=== PATIENT | female | born 1975 | race American Indian/Alaskan Native ===

== ENCOUNTER 2019-04-15 20:41 | Emergency (ER) | payer SELFPAY ==
--- NOTE | 2019-04-15 20:48 | Emergency Department Report ---
Blank Doc - Documentation Documentation: This is a 43-year-old female that presents with abdominal pain with n/v. This initial assessment/diagnostic orders/clinical plan/treatment(s) is/are subject to change based on patient's health status, clinical progression and re- assessment by fellow clinical providers in the ED. Further treatment and workup at subsequent clinical providers discretion. Patient/guardians urged not to elope from the ED as their condition may be serious if not clinically assessed and managed. Initial orders include: 1- Patient sent to [facility] for further evaluation and treatment 2- labs 3- UA
[2019-04-15 20:52] VITALS: BP 157/99
[2019-04-15 21:33] LABS: Alanine Aminotransferase 14 units/L (7-56); Albumin 4.1 g/dL (3.9-5); BUN/Creatinine Ratio 14; Blood Urea Nitrogen 11 mg/dL (7-17); Calcium 8.7 mg/dL (8.4-10.2); Hemolysis Index 0
[2019-04-15 21:40] LABS: Bacteria,Urine 1+ /HPF (Negative); Bilirubin,Urine NEG (Negative); Blood,Urine NEG (Negative); Color,Urine Yellow (Yellow); Mucus,Urine 3+ /HPF
[2019-04-15] MEDS ORDERED: MORPHINE IV ONE (21:43)
[2019-04-15] MEDS ORDERED: ZOFRAN IV ONE (21:43)
[2019-04-15] MEDS ORDERED: NACL 0.9% 1000 ML 1,000 ML IV ONE (21:44)
[2019-04-15 21:46] LABS: Basophils # (Auto) 0.1 K/mm3 (0.0-0.1); Basophils % (Auto) 0.7 % (0.0-1.8); Eosinophils # (Auto) 0.1 K/mm3 (0.0-0.4); Eosinophils % (Auto) 1.4 % (0.0-4.3); Hematocrit 26.5 % (30.3-42.9); Hemoglobin 8.1 gm/dl (10.1-14.3); Lymphocytes # (Auto) 2.3 K/mm3 (1.2-5.4); Lymphocytes % (Auto) 24.6 % (13.4-35.0); Mean Corpuscular HGB Conc 31 % (30-34); Monocytes # (Auto) 0.5 K/mm3 (0.0-0.8); Monocytes % (Auto) 5.7 % (0.0-7.3); Platelet Count 336 K/mm3 (140-440); Red Blood Count 4.32 M/mm3 (3.65-5.03); Red Cell Distribution Width 19.9 % (13.2-15.2)
[2019-04-15 21:49] LABS: Mean Corpuscular Volume 62 fl (79-97)
--- NOTE | 2019-04-15 23:59 | Cat Scan Report ---
CT of the abdomen and pelvis with contrast The patient received 100 cc of Omnipaque 300 for intravenous contrast INDICATION: Lower quadrant pain COMPARISON: None FINDINGS: Lung bases are clear. The liver, spleen, pancreas, adrenal glands and kidneys show no abnor malities. No definite gallbladder or biliary tree abnormality. No fluid or adenopathy the in the uppe r abdomen. CT of the pelvis shows large amount of motion artifact. The appendix is seen and is normal. There are no uterine masses seen. There may be a small 2 cm right ovarian cyst without free fluid. No divertic ulosis or diverticulitis. No hernia or bowel obstruction. No significant skeletal lesion. IMPRESSION: Negative study. No appendicitis or other abnormality. Automated exposure control was utilized to diminish radiation dose. Signer Name: Jah Chadwick MD Signed: 04/15/2019 11:55 PM Workstation Name: [id number]
--- NOTE | 2019-04-16 00:16 | Emergency Department Report ---
ED Abdominal Pain HPI - General Chief Complaint: Abdominal Pain Stated Complaint: ABD PAIN, VOMITTING, NAUSEA, SWEATING Time Seen by Provider: 04/15/19 20:48 Source: patient Mode of arrival: Ambulatory Limitations: No Limitations - History of Present Illness Initial Comments: Patient is a 43-year-old -[place] female with a history of chronic iron deficiency anemia presents to the ED with complaint of acute onset persistent right lower quadrant abdominal pain with nausea and vomiting and diarrhea for the last 24 hours, worse in the last 12 hours. Patient states that the symptoms have been intermittent and that the pain has been persistent. Patient denies fever, chills, dysuria, urinary frequency and urgency, vaginal bleeding, vaginal discharge, low back pain, cough, chest pain, shortness of breath, dizziness, sore throat, headache, or weakness. MD Complaint: abdominal pain, other (nausea and vomiting) -: Sudden, hour(s) (12) Location: RLQ Radiation: RLQ, suprapubic Migration to: no migration Severity: severe Severity scale (0 -10): 7 Quality: cramping, aching, sharp Consistency: constant Improves With: nothing Worsens With: nothing Associated Symptoms: denies other symptoms, nausea, vomiting, diarrhea. denies: fever, chills, constipation, dysuria, hematemesis, hematochezia, melena, hematuria, anorexia, syncope - Related Data LMP (females 10-50): last week Previous Rx's Medication Instructions Recorded Last Taken Type Dicyclomine [Bentyl] 20 mg PO Q6H PRN #24 tablet 04/16/19 Unknown Rx Ferrous Sulfate [Ferrous Sulfate 324 mg PO DAILY #30 tablet. 04/16/19 Unknown Rx 324 MG] Ketorolac [Toradol] 10 mg PO Q8H PRN #20 tablet 04/16/19 Unknown Rx Ondansetron [Zofran Odt] 4 mg PO Q6HR PRN #20 tab.rapdis 04/16/19 Unknown Rx Sennosides/Docusate Sodium 1 each PO QHS #30 tablet 04/16/19 Unknown Rx [Docusate Sodium-Senna Tablet] raNITIdine HCl [Zantac] 150 mg PO Q12H #30 tablet 04/16/19 Unknown Rx Allergies Allergy/AdvReac Type Severity Reaction Status Date / Time No Known Allergies Allergy Unverified 04/15/19 20:52 ED Review of Systems ROS: Stated complaint: ABD PAIN, VOMITTING, NAUSEA, SWEATING Other details as noted in HPI Constitutional: denies: chills, fever Eyes: denies: eye pain, eye discharge, vision change ENT: denies: ear pain, throat pain Respiratory: denies: cough, shortness of breath, wheezing Cardiovascular: denies: chest pain, palpitations Endocrine: no symptoms reported Gastrointestinal: abdominal pain, nausea, vomiting, diarrhea. denies: constipa tion, hematemesis, hematochezia Genitourinary: denies: urgency, dysuria, discharge Musculoskeletal: denies: back pain, joint swelling, arthralgia Skin: denies: rash, lesions Neurological: denies: headache, weakness, paresthesias Psychiatric: denies: anxiety, depression Hematological/Lymphatic: denies: easy bleeding, easy bruising ED Past Medical Hx - Past Medical History Previous Medical History?: No - Surgical History Past Surgical History?: Yes Additional Surgical History: TUBAL LIGATION - Social History Smoking Status: Current Every Day Smoker Substance Use Type: Alcohol, Marijuana - Medications Home Medications: Home Medications Medication Instructions Recorded Confirmed Last Taken Type Dicyclomine [Bentyl] 20 mg PO Q6H PRN #24 tablet 04/16/19 Unknown Rx Ferrous Sulfate [Ferrous Sulfate 324 mg PO DAILY #30 tablet.dr 04/16/19 Unknown Rx 324 MG] Ketorolac [Toradol] 10 mg PO Q8H PRN #20 tablet 04/16/19 Unknown Rx Ondansetron [Zofran Odt] 4 mg PO Q6HR PRN #20 tab.rapdis 04/16/19 Unknown Rx Sennosides/Docusate Sodium 1 each PO QHS #30 tablet 04/16/19 Unknown Rx [Docusate Sodium-Senna Tablet] raNITIdine HCl [Zantac] 150 mg PO Q12H #30 tablet 04/16/19 Unknown Rx ED Physical Exam - General Limitations: No Limitations General appearance: alert, in no apparent distress - Head Head exam: Present: atraumatic, normocephalic, normal inspection - Eye Eye exam: Present: normal appearance, PERRL, EOMI. Absent: scleral icterus, nystagmus, periorbital swelling, periorbital tenderness, other Pupils: Present: normal accommodation - ENT ENT exam: Present: normal exam, normal orophraynx, mucous membranes moist, TM's normal bilaterally, normal external ear exam - Neck Neck exam: Present: normal inspection, full ROM. Absent: tenderness, lymphadenopathy - Respiratory Respiratory exam: Present: normal lung sounds bilaterally. Absent: respiratory distress, wheezes, rales, chest wall tenderness, accessory muscle use, decreased breath sounds, prolonged expiratory - Cardiovascular Cardiovascular Exam: Present: regular rate, normal rhythm, normal heart sounds. Absent: systolic murmur, diastolic murmur, rubs, gallop - GI/Abdominal GI/Abdominal exam: Present: soft, tenderness (RLQ tenderness), normal bowel sounds. Absent: guarding, rebound, hyperactive bowel sounds, hypoactive bowel sounds, organomegaly, mass, bruit, pulsatile mass, other - Rectal Rectal exam: Present: deferred - Extremities Exam Extremities exam: Present: normal inspection, full ROM, normal capillary refill - Back Exam Back exam: Present: normal inspection, full ROM. Absent: tenderness, CVA tenderness (R), CVA tenderness (L), muscle spasm, paraspinal tenderness, vertebral tenderness - Neurological Exam Neurological exam: Present: alert, oriented X3, CN II-XII intact, normal gait, reflexes normal - Psychiatric Psychiatric exam: Present: normal affect, normal mood - Skin Skin exam: Present: warm, dry, intact, normal color. Absent: rash ED Course Vital Signs 04/15/19 20:48 Temperature 98.4 F Pulse Rate 104 H Respiratory 18 Rate Blood Pressure 157/99 O2 Sat by Pulse 100 Oximetry - Reevaluation(s) Reevaluation #1: 04/16/19 00:14 This is a 43-year-old female with a history of chronic iron deficiency anemia who presented to the ED with acute onset right lower quadrant pain with nausea and vomiting and diarrhea. In the ED patient is alert and oriented 3 and is not in distress. Patient was treated in the ED for pain or nausea and vomiting. Lab test results were reviewed and are significant for H&H of 8.1 and 26.5 and MCV of 62. Patient stated that she does not take any iron pills despite the fact that she is anemic. Abdomen pelvis CT scan with contrast shows Lung bases which are clear. The liver, spleen, pancreas, adrenal glands and kidneys show no abnormalities. No definite gallbladder or biliary tree abnormality. No fluid or adenopathy the in the upper abdomen. CT of the pelvis shows large amount of motion artifact. The appendix is seen and is normal. There are no uterine masses seen. There may be a small 2 cm right ovarian cyst without free fluid. No diverticulosis or diverticulitis. No hernia or bowel obstruction. No significant skeletal lesion. On reevaluation, patient's pain is well-controlled with medi cations, as well as nausea and vomiting. Patient was discharged home on medications for pain and antiemetics, and also given a prescription for ferrous sulfate for her chronic anemia. Patient was advised to follow-up with her primary care physician in 5-7 days for reevaluation or return to the ED immediately if symptoms get worse. ED Medical Decision Making - Lab Data Result diagrams: 04/15/19 21:06 04/15/19 21:06 - Radiology Data Radiology results: report reviewed, image reviewed Findings [facility] [address] [place] [address] Cat Scan Report Signed Patient: GEOFFREY SOTO MR#: [id number] : 1975 Acct:[id number] Age/Sex: 43 / F ADM Date: 04/15/19 Loc: ED Attending Dr: Ordering Physician: SYLVESTER MIXON Date of Service: 04/15/19 Procedure(s): CT abdomen pelvis w con Accession Number(s): [id number] cc: SYLVESTER MIXON CT of the abdomen and pelvis with contrast The patient received 100 cc of Omnipaque 300 for intravenous contrast INDICATION: Lower quadrant pain COMPARISON: None FINDINGS: Lung bases are clear. The liver, spleen, pancreas, adrenal glands and kidneys show no abnormalities. No definite gallbladder or biliary tree abnormality. No fluid or adenopathy the in the upper abdomen. CT of the pelvis shows large amount of motion artifact. The appendix is seen and is normal. There are no uterine masses seen. There may be a small 2 cm right ovarian cyst without free fluid. No diverticulosis or diverticulitis. No hernia or bowel obstruction. No significant skeletal lesion. IMPRESSION: Negative study. No appendicitis or other abnormality. Automated exposure control was utilized to diminish radiation dose. - Medical Decision Making This is a 43-year-old female with a history of chronic iron deficiency anemia who presented to the ED with acute onset right lower quadrant pain with nausea and vomiting and diarrhea. In the ED patient is alert and oriented 3 and is not in distress. Patient was treated in the ED for pain or nausea and vomiting. Lab test results were reviewed and are significant for H&H of 8.1 and 26.5 and MCV of 62. Patient stated that she does not take any iron pills despite the fact that she is anemic. Abdomen pelvis CT scan with contrast shows Lung bases which are clear. The liver, spleen, pancreas, adrenal glands and kidneys show no abnormalities. No definite gallbladder or biliary tree abnormality. No fluid or adenopathy the in the upper abdomen. CT of the pelvis shows large amount of motion artifact. The appendix is seen and is normal. There are no uterine masses seen. There may be a small 2 cm right ovarian cyst without free fluid. No diverticulosis or diverticulitis. No hernia or bowel obstruction. No significant skeletal lesion. On reevaluation, patient's pain is well-controlled with medications, as well as nausea and vomiting. Patient was discharged home on medications for pain and antiemetics, and also given a prescription for ferrous sulfate for her chronic anemia. Patient was advised to follow-up with her primary care physician in 5-7 days for reevaluation or return to the ED im mediately if symptoms get worse. - Differential Diagnosis Abdominal pain; vomiting, Gastroenteritis; Appendicitis, ovarian cyst, UTI Critical care attestation.: If time is entered above; I have spent that time in minutes in the direct care of this critically ill patient, excluding procedure time. ED Disposition Clinical Impression: Abdominal pain, right lower quadrant, Nausea and vomiting in adult, Chronic iron deficiency anemia, Gastroenteritis, Right ovarian cyst Disposition: - TO HOME OR SELFCARE Is pt being admited?: No Does the pt Need Aspirin: No Condition: Stable Instructions: Abdominal Pain (ED), Ovarian Cyst (ED), Iron Deficiency Anemia (ED), Gastroenteritis (ED), Acute Nausea and Vomiting (ED) Additional Instructions: Maintain a clear liquid diet in the next 12-24 hours. Taken medications with food, drink plenty of fluids and follow-up with your primary care physician in 5-7 days for reevaluation. Return to the ED immediately if symptoms get worse. Prescriptions: Sennosides/Docusate Sodium [Docusate Sodium-Senna Tablet] 1 each PO QHS #30 tablet Dicyclomine [Bentyl] 20 mg PO Q6H PRN #24 tablet PRN Reason: Pain , Severe (7-10) Ferrous Sulfate [Ferrous Sulfate 324 MG] 324 mg PO DAILY #30 tablet. Ketorolac [Toradol] 10 mg PO Q8H PRN #20 tablet PRN Reason: Pain raNITIdine HCl [Zantac] 150 mg PO Q12H #30 tablet Ondansetron [Zofran Odt] 4 mg PO Q6HR PRN #20 tab.rapdis PRN Reason: Nausea Referrals: [facility] [Outside] - 3-5 Days Time of Disposition: 00:21 Print Language: PORTUGUESE
== END 2019-04-16 00:40 | disposition home or self-care (01) ==
LOC: ED 20:41
DX: K52.9 Noninfective gastroenteritis and colitis, unspecified (principal); R11.2 Nausea with vomiting, unspecified; D50.9 Iron deficiency anemia, unspecified; N83.201 Unspecified ovarian cyst, right side; F17.200 Nicotine dependence, unspecified, uncomplicated; F12.10 Cannabis abuse, uncomplicated; Z98.51 Tubal ligation status
CPT/HCPCS: 36415; 74177; 80053; 81001; 83690; 84703; 85025; 96361; 96374; 96375; 99284; J2270; J2405; J7030; Q9967

== ENCOUNTER 2019-05-05 12:29 | Emergency (ER) | payer SELFPAY ==
[2019-05-05 12:44] VITALS: BP 159/98
== END 2019-05-05 15:01 | disposition left against medical advice (07) ==
LOC: ED 12:29
DX: M54.5 Low back pain (principal); Z53.21 Procedure and treatment not carried out due to patient leaving prior to being seen by health care provider

== ENCOUNTER 2019-05-06 06:15 | Emergency (ER) | payer SELFPAY ==
--- NOTE | 2019-05-06 07:34 | Emergency Department Report ---
ED General Adult HPI - General Chief complaint: Back Pain/Injury Stated complaint: BACK ACHE Source: patient Mode of arrival: Ambulatory Limitations: No Limitations - History of Present Illness Initial comments: 43yo F states that she has back pain that began 3 days ago. 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 -: Gradual Location: back Radiation: back Severity scale (0 -10): 10 Quality: aching Consistency: constant Improves with: none Worsens with: none Associated Symptoms: denies other symptoms Treatments Prior to Arrival: none - Related Data Previous Rx's Medication Instructions Recorded Last Taken Type Dicyclomine [Bentyl] 20 mg PO Q6H PRN #24 tablet 04/16/19 Unknown Rx Ferrous Sulfate [Ferrous Sulfate 324 mg PO DAILY #30 tablet.dr 04/16/19 Unknown Rx 324 MG] Ketorolac [Toradol] 10 mg PO Q8H PRN #20 tablet 04/16/19 Unknown Rx Ondansetron [Zofran Odt] 4 mg PO Q6HR PRN #20 tab.rapdis 04/16/19 Unknown Rx Sennosides/Docusate Sodium 1 each PO QHS #30 tablet 04/16/19 Unknown Rx [Docusate Sodium-Senna Tablet] raNITIdine HCl [Zantac] 150 mg PO Q12H #30 tablet 04/16/19 Unknown Rx Cyclobenzaprine [Flexeril 10 MG 10 mg PO TID PRN #15 tablet 05/06/19 Unknown Rx TAB] Ibuprofen [Motrin 600 MG tab] 600 mg PO Q8H PRN 7 Days #21 tablet 05/06/19 Unknown Rx Allergies Allergy/AdvReac Type Severity Reaction Status Date / Time No Known Allergies Allergy Unverified 04/15/19 20:52 ED Review of Systems ROS: Stated complaint: BACK ACHE Other details as noted in HPI Comment: All other systems reviewed and negative Constitutional: denies: chills, fever Eyes: denies: eye pain, eye discharge, vision change ENT: denies: ear pain, throat pain Respiratory: denies: cough, shortness of breath, wheezing Cardiovascular: denies: chest pain, palpitations Endocrine: no symptoms reported Gastrointestinal: denies: abdominal pain, nausea, diarrhea Genitourinary: denies: urgency, dysuria, discharge Musculoskeletal: as per HPI Skin: denies: rash, lesions Neurological: denies: headache, weakness, paresthesias Psychiatric: denies: anxiety, depression Hematological/Lymphatic: denies: easy bleeding, easy bruising ED Past Medical Hx - Past Medical History Previous Medical History?: No Hx Hypertension: No - Surgical History Past Surgical History?: Yes Additional Surgical History: TUBAL LIGATION - Social History Smoking Status: Current Some Day Smoker - Medications Home Medications: Home Medications Medication Instructions Recorded Confirmed Last Taken Type Dicyclomine [Bentyl] 20 mg PO Q6H PRN #24 tablet 04/16/19 Unknown Rx Ferrous Sulfate [Ferrous Sulfate 324 mg PO DAILY #30 tablet.dr 04/16/19 Unknown Rx 324 MG] Ketorolac [Toradol] 10 mg PO Q8H PRN #20 tablet 04/16/19 Unknown Rx Ondansetron [Zofran Odt] 4 mg PO Q6HR PRN #20 tab.rapdis 04/16/19 Unknown Rx Sennosides/Docusate Sodium 1 each PO QHS #30 tablet 04/16/19 Unknown Rx [Docusate Sodium-Senna Tablet] raNITIdine HCl [Zantac] 150 mg PO Q12H #30 tablet 04/16/19 Unknown Rx Cyclobenzaprine [Flexeril 10 MG 10 mg PO TID PRN #15 tablet 05/06/19 Unknown Rx TAB] Ibuprofen [Motrin 600 MG tab] 600 mg PO Q8H PRN 7 Days #21 tablet 05/06/19 Unknown Rx ED Physical Exam - General Limitations: No Limitations General appearance: alert, in no apparent distress - Head Head exam: Present: atraumatic, normocephalic - Eye Eye exam: Present: normal appearance - ENT ENT exam: Present: mucous membranes moist - Neck Neck exam: Present: normal inspection - Respiratory Respiratory exam: Present: normal lung sounds bilaterally. Absent: respiratory distress - Cardiovascular Cardiovascular Exam: Present: regular rate, normal rhythm. Absent: systolic murmur, diastolic murmur, rubs, gallop - GI/Abdominal GI/Abdominal exam: Present: soft, normal bowel sounds - Rectal Rectal exam: Present: deferred - Extremities Exam Extremities exam: Present: normal inspection - Back Exam Back exam: Present: tenderness (point tenderness at lower lumbar spine), other (appears to be ). Absent: full ROM (pain appears to be worse with flexion; ambulating is difficult) - Neurological Exam Neurological exam: Present: alert, oriented X3 - Psychiatric Psychiatric exam: Present: normal affect, normal mood - Skin Skin exam: Present: warm, dry, intact, normal color. Absent: rash ED Course Vital Signs 05/06/19 05/06/19 06:20 09:11 Temperature 98.8 F 97.5 F L Pulse Rate 107 H 61 Respiratory 18 16 Rate Blood Pressure 130/102 Blood Pressure 148/96 [Left] O2 Sat by Pulse 100 100 Oximetry ED Medical Decision Making - Medical Decision Making 43yo F states that she has back pain that began 3 days ago. 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 Pt displayed point tenderness of her lumbar spine with palpation. A lumbar spine xray was ordered and the results are listed below. Pt was started on Cyclobenzaprine and Ibuprofen. She was instructed to apply warm compress for 20 minutes at a time, f/u with PCP and see ER if symptoms worsen or new severe symptoms arise. Ordering Physician: GE VAZQUEZ PA-C Date of Service: 05/06/19 Procedure(s): XR spine lumbosacral 2-3V Accession Number(s): [id number] cc: GE VAZQUEZ PA-C Fluoro Time In Minutes: LUMBAR SPINE 3 VIEWS INDICATION / CLINICAL INFORMATION: back pain. COMPARISON: None available. FINDINGS: VERTEBRAE: No acute fracture. No significant malalignment. DISC SPACES / FACET JOINTS:Disc space narrowing and anterior osteophytes at L5- S1. L5-S1 facet joint sclerosis. PARASPINAL SOFT TISSUES:No significant abnormality. ADDITIONAL FINDINGS: None. IMPRESSION: 1. L5-S1 degenerative disc disease and degenerative facet joint arthropathy. 2. No other significant finding. Signer Name: Ameya Buckner MD Signed: 05/06/2019 8:15 AM Workstation Name: [id number] Transcribed By: REF Dictated By: AMEYA BUCKNER MD Electronically Authenticated By: AMEYA BUCKNER MD Signed Date/Time: 05/06/19 0815 Critical care attestation.: If time is entered above; I have spent that time in minutes in the direct care of this critically ill patient, excluding procedure time. ED Disposition Clinical Impression: Low back pain Disposition: DC-01 TO HOME OR SELFCARE Is pt being admited?: No Does the pt Need Aspirin: No Condition: Stable Additional Instructions: . Pt was started on Cyclobenzaprine and Ibuprofen. She was instructed to apply warm compress for 20 minutes at a time, f/u with PCP and see ER if symptoms worsen or new severe symptoms arise. Pt was instructed to not drink ETOH, lift heavy objects or operate heavy machinery while on muscle relaxants. Prescriptions: Cyclobenzaprine [Flexeril 10 MG TAB] 10 mg PO TID PRN #15 tablet PRN Reason: Muscle Spasm Ibuprofen [Motrin 600 MG tab] 600 mg PO Q8H PRN 7 Days #21 tablet PRN Reason: Pain Referrals: PRIMARY CARE, [Primary Care Provider] - 3-5 Days [facility] [Outside] - 3-5 Days Forms: Work/School Release Form(ED)
--- NOTE | 2019-05-06 08:19 | XRay Report ---
LUMBAR SPINE 3 VIEWS INDICATION / CLINICAL INFORMATION: back pain. COMPARISON: None available. FINDINGS: VERTEBRAE: No acute fracture. No significant malalignment. DISC SPACES / FACET JOINTS:Disc space narrowing and anterior osteophytes at L5-S1. L5-S1 facet joint sclerosis. PARASPINAL SOFT TISSUES:No significant abnormality. ADDITIONAL FINDINGS: None. IMPRESSION: 1. L5-S1 degenerative disc disease and degenerative facet joint arthropathy. 2. No other significant finding. Signer Name: Ameya Metcalf MD Signed: 05/06/2019 8:15 AM Workstation Name: [id number]
[2019-05-06 09:12] VITALS: BP 148/96
== END 2019-05-06 09:51 | disposition home or self-care (01) ==
LOC: ED 06:15
DX: M54.5 Low back pain (principal); F17.200 Nicotine dependence, unspecified, uncomplicated; Z98.51 Tubal ligation status
CPT/HCPCS: 72100

== ENCOUNTER 2019-09-11 11:04 | Emergency (ER) | payer SELFPAY ==
[2019-09-11 11:11] VITALS: BP 145/95
[2019-09-11 15:11] LABS: Bilirubin,Urine NEG (Negative); Blood,Urine NEG (Negative); Color,Urine Yellow (Yellow); Mucus,Urine 3+ /HPF; Protein,Urine <15 mg/dL mg/dL (Negative); Urobilinogen,Urine < 2.0 mg/dL (<2.0)
[2019-09-11 15:12] LABS: HCG Qualitative,Urine Negative (Negative)
--- NOTE | 2019-09-11 15:22 | Emergency Department Report ---
ED Female HPI - General Chief complaint: Abdominal Pain Stated complaint: ABD PAIN Time Seen by Provider: 09/11/19 13:31 Source: patient Mode of arrival: Ambulatory Limitations: No Limitations - History of Present Illness Initial comments: Patient is a 43-year-old female presents emergency room with complaints of vaginal discharge that began a week ago. She has associated vaginal itching. She states that she has some lower abdominal discomfort. She denies any vomiting, diarrhea, fever, urinary symptoms. She denies any new partner. States she has an STD history of Trichomonas. She denies any past history or allergies medications. - Related Data Previous Rx's Medication Instructions Recorded Last Taken Type Dicyclomine [Bentyl] 20 mg PO Q6H PRN #24 tablet 04/16/19 Unknown Rx Ferrous Sulfate [Ferrous Sulfate 324 mg PO DAILY #30 tablet.dr 04/16/19 Unknown Rx 324 MG] Ketorolac [Toradol] 10 mg PO Q8H PRN #20 tablet 04/16/19 Unknown Rx Ondansetron [Zofran Odt] 4 mg PO Q6HR PRN #20 tab.rapdis 04/16/19 Unknown Rx Sennosides/Docusate Sodium 1 each PO QHS #30 tablet 04/16/19 Unknown Rx [Docusate Sodium-Senna Tablet] raNITIdine HCl [Zantac] 150 mg PO Q12H #30 tablet 04/16/19 Unknown Rx Cyclobenzaprine [Flexeril 10 MG 10 mg PO TID PRN #15 tablet 05/06/19 Unknown Rx TAB] Ibuprofen [Motrin 600 MG tab] 600 mg PO Q8H PRN 7 Days #21 tablet 05/06/19 Unknown Rx metroNIDAZOLE [Flagyl] 500 mg PO Q12HR #14 tab 05/31/19 Unknown Rx metroNIDAZOLE [metroNIDAZOLE 70 gm VG QHS 5 Days #5 gel.w.appl 09/11/19 Unknown Rx VAGINAL 0.75% gel] Allergies Allergy/AdvReac Type Severity Reaction Status Date / Time No Known Allergies Allergy Unverified 04/15/19 20:52 ED Review of Systems ROS: Stated complaint: ABD PAIN Other details as noted in HPI Comment: All other systems reviewed and negative ED Past Medical Hx - Past Medical History Previous Medical History?: No Hx Hypertension: No - Surgical History Past Surgical History?: Yes Additional Surgical History: TUBAL LIGATION - Social History Smoking Status: Current Every Day Smoker Substance Use Type: Alcohol - Medications Home Medications: Home Medications Medication Instructions Recorded Confirmed Last Taken Type Dicyclomine [Bentyl] 20 mg PO Q6H PRN #24 tablet 04/16/19 Unknown Rx Ferrous Sulfate [Ferrous Sulfate 324 mg PO DAILY #30 tablet.dr 04/16/19 Unknown Rx 324 MG] Ketorolac [Toradol] 10 mg PO Q8H PRN #20 tablet 04/16/19 Unknown Rx Ondansetron [Zofran Odt] 4 mg PO Q6HR PRN #20 tab.rapdis 04/16/19 Unknown Rx Sennosides/Docusate Sodium 1 each PO QHS #30 tablet 04/16/19 Unknown Rx [Docusate Sodium-Senna Tablet] raNITIdine HCl [Zantac] 150 mg PO Q12H #30 tablet 04/16/19 Unknown Rx Cyclobenzaprine [Flexeril 10 MG 10 mg PO TID PRN #15 tablet 05/06/19 Unknown Rx TAB] Ibuprofen [Motrin 600 MG tab] 600 mg PO Q8H PRN 7 Days #21 tablet 05/06/19 Unknown Rx metroNIDAZOLE [Flagyl] 500 mg PO Q12HR #14 tab 05/31/19 Unknown Rx metroNIDAZOLE [metroNIDAZOLE 70 gm VG QHS 5 Days #5 gel.w.appl 09/11/19 Unknown Rx VAGINAL 0.75% gel] ED Physical Exam - General Limitations: No Limitations General appearance: alert, in no apparent distress - Head Head exam: Present: atraumatic, normocephalic - Eye Eye exam: Present: normal appearance - ENT ENT exam: Present: mucous membranes moist - GI/Abdominal GI/Abdominal exam: Present: soft. Absent: distended, tenderness, guarding, rebound, rigid - External exam: Present: normal external exam. Absent: erythema, swelling, lesions, lacerations, ecchymosis, bleeding Speculum exam: Present: vaginal discharge (white), cervical discharge (white), other (director of volunteer services: RAZ Sesay). Absent: erythema, vaginal bleeding, foreign body, tissue, laceration Bi-manual exam: Present: normal bi-manual exam. Absent: cervical motion tendernes, adnexal tenderness, adnexal mass - Neurological Exam Neurological exam: Present: alert, oriented X3 - Psychiatric Psychiatric exam: Present: normal affect, normal mood - Skin Skin exam: Present: warm, dry, intact ED Course Vital Signs 09/11/19 11:06 Temperature 98.6 F Pulse Rate 89 Respiratory 18 Rate Blood Pressure 145/95 O2 Sat by Pulse 99 Oximetry ED Medical Decision Making - Lab Data Lab Results 09/11/19 Range/Units 14:45 Urine Color Yellow (Yellow) Urine Turbidity Cloudy (Clear) Urine pH 6.0 (5.0-7.0) Ur Specific Drayden 1.026 (1.003-1.030) Urine Protein <15 mg/dl (Negative) mg/dL Urine Glucose (UA) Neg (Negative) mg/dL Urine Ketones Neg (Negative) mg/dL Urine Blood Neg (Negative) Urine Nitrite Neg (Negative) Urine Bilirubin Neg (Negative) Urine Urobilinogen < 2.0 (<2.0) mg/dL Ur Leukocyte Esterase Neg (Negative) Urine WBC (Auto) 1.0 (0.0-6.0) /HPF Urine RBC (Auto) 2.0 (0.0-6.0) /HPF U Epithel Cells (Auto) 49.0 H (0-13.0) /HPF Urine Mucus 3+ /HPF Urine HCG, Qual Negative (Negative) - Medical Decision Making Patient is a 43-year-old female presents emergency room with complaints of vaginal discharge that began a week ago. She has associated vaginal itching. She states that she has some lower abdominal discomfort. She denies any vomiting, diarrhea, fever, urinary symptoms. She denies any new partner. States she has an STD history of Trichomonas. She denies any past history or allergies medications. VSS. UA without evidence of UTI. Wet prep shows evidence of bacterial vaginosis. G/C swab sent. no clinical s/sx of PID. pt states that she prefers the metrogel over the flagyl tablets. advised patient to please use medication as prescribed. Do not drink alcohol while taking medication. Please go to medical records in one week with your drivers license for results of your tests to see if you need further treatment. please have your partner tested and treated. avoid sexual intercourse for 10 days. Please follow-up with a [facility] in the next 2-3 days. Return to the emergency room for any new or worsening symptoms. - Differential Diagnosis STD, UTI, BV, yeast, vaginitis, PID Critical care attestation.: If time is entered above; I have spent that time in minutes in the direct care of this critically ill patient, excluding procedure time. ED Disposition Clinical Impression: Bacterial vaginosis Disposition: TO HOME OR SELFCARE Is pt being admited?: No Does the pt Need Aspirin: No Condition: Stable Instructions: Bacterial Vaginosis (ED) Additional Instructions: please take medication as prescribed. Do not drink alcohol while taking medication. Please go to medical records in one week with your drivers license for results of your tests to see if you need further treatment. please have your partner tested and treated. avoid sexual intercourse for 10 days. Please follow-up with a [facility] in the next 2-3 days. Return to the emergency room for any new or worsening symptoms. Prescriptions: metroNIDAZOLE [metroNIDAZOLE VAGINAL 0.75% gel] 70 gm VG QHS 5 Days #5 gel.w.appl Referrals: [facility] [Outside] - 2-3 Days [facility] [Outside] - 2-3 Days [facility] [Provider Group] - 2-3 Days Forms: STI Treatment and Prevention Time of Disposition: 15:27 Print Language: SOUTH AFRICAN
== END 2019-09-11 15:50 | disposition home or self-care (01) ==
LOC: ED 11:04
DX: N76.0 Acute vaginitis (principal); B96.89 Other specified bacterial agents as the cause of diseases classified elsewhere; F17.200 Nicotine dependence, unspecified, uncomplicated; Z98.51 Tubal ligation status; Z79.899 Other long term (current) drug therapy
CPT/HCPCS: 81001; 81025; 87210; 87591

== ENCOUNTER 2019-12-09 21:50 | Emergency (ER) | payer SELFPAY ==
[2019-12-09 22:51] LABS: Basophils # (Auto) 0.1 K/mm3 (0.0-0.1); Basophils % (Auto) 0.9 % (0.0-1.8); Eosinophils # (Auto) 0.2 K/mm3 (0.0-0.4); Eosinophils % (Auto) 1.8 % (0.0-4.3); Hematocrit 33.6 % (30.3-42.9); Hemoglobin 10.9 gm/dl (10.1-14.3); Lymphocytes # (Auto) 2.7 K/mm3 (1.2-5.4); Lymphocytes % (Auto) 28.9 % (13.4-35.0); Mean Corpuscular HGB Conc 32 % (30-34); Mean Corpuscular Volume 73 fl (79-97); Monocytes # (Auto) 0.6 K/mm3 (0.0-0.8); Monocytes % (Auto) 6.6 % (0.0-7.3); Platelet Count 295 K/mm3 (140-440); Red Cell Distribution Width 19.7 % (13.2-15.2)
[2019-12-09 22:58] LABS: INR 1.03 (0.87-1.13)
--- NOTE | 2019-12-09 23:05 | XRay Report ---
CHEST 2 VIEWS INDICATION / CLINICAL INFORMATION: Chest Pain. COMPARISON: None available. FINDINGS: SUPPORT DEVICES: None. HEART / MEDIASTINUM: The heart size and pulmonary vasculature are normal. The aorta is normal in [place] ty. LUNGS / PLEURA: No significant pulmonary or pleural abnormality. No pneumothorax. ADDITIONAL FINDINGS: No significant additional findings. IMPRESSION: No acute findings. Signer Name: Kenan Tinsley MD Signed: 12/09/2019 11:00 PM Workstation Name: [id number]
[2019-12-09 23:09] LABS: BUN/Creatinine Ratio 16; Blood Urea Nitrogen 13 mg/dL (7-17); Calcium 9.2 mg/dL (8.4-10.2); Hemolysis Index 19
[2019-12-10] MEDS ORDERED: ASPIRIN 81 MG TAB CHEW PO ONE (01:20)
[2019-12-10] MEDS ORDERED: FAMOTIDINE 20 MG TAB PO ONE (01:21)
[2019-12-10] MEDS ORDERED: ALUM-MAG HYDROXIDE-SIMETHICONE 200-200-20MG/5ML ORAL LIQD 30 ML PO ONE (01:21)
[2019-12-10] MEDS ORDERED: LIDOCAINE VISCOUS 2% 15 ML ORAL LIQD PO ONE (01:21)
--- NOTE | 2019-12-10 02:53 | Emergency Department Report ---
ED Chest Pain HPI - General Chief Complaint: Chest Pain Stated Complaint: CHEST PAIN/SOB Source: patient Mode of arrival: Ambulatory Limitations: No Limitations - History of Present Illness Initial Comments: Patient is a 44-year-old -[place] female with no past medical history but who smokes marijuana and cigarettes presents to the ED with complaint of acute onset persistent substernal chest pain that she describes as burning sensation and tightness with epigastric discomfort and sore throat for the intermittently for the last 2 weeks but which got worse in the last 6 hours. Patient states that the symptoms occur mainly at night when she lays down to sleep and after she eats dinner. Patient also states that tonight 2 hours prior to arrival, she developed similar symptoms of substernal chest discomfort with a burning sensation, sore throat and epigastric discomfort and also developed shortness of breath afterwards. Patient denies fever, chills, cough, dizziness, syncope, palpitations, nausea, vomiting, diarrhea, neck pain, numbness and tingling or weakness of upper and lower extremities bilaterally or change in vision and headache. MD Complaint: chest pain, other (epigastric pain and sore throat) -: Sudden, week(s) (2) Onset: after eating, other (associated with sleep) Pain Location: substernal, epigastric Pain Radiation: none Severity: moderate Severity scale (0 -10): 4 Quality: aching Consistency: intermittent Improves With: nothing Worsens With: eating, supine re: denies: nausea, vomting, diaphoresis, dyspnea, sense of impending doom Other Symptoms: denies: cough, fever, syncope, rash, acid taste in mouth, leg swelling, palpitations, burping, other Treatments Prior to Arrival: none Aspirin use within the Past 7 Days: (0) No - Related Data On Oral Contraceptives: No Previous Rx's Medication Instructions Recorded Last Taken Type Dicyclomine [Bentyl] 20 mg PO Q6H PRN #24 tablet 04/16/19 Unknown Rx Ferrous Sulfate [Ferrous Sulfate 324 mg PO DAILY #30 tablet.dr 04/16/19 Unknown Rx 324 MG] Ketorolac [Toradol] 10 mg PO Q8H PRN #20 tablet 04/16/19 Unknown Rx Ondansetron [Zofran Odt] 4 mg PO Q6HR PRN #20 tab.rapdis 04/16/19 Unknown Rx Sennosides/Docusate Sodium 1 each PO QHS #30 tablet 04/16/19 Unknown Rx [Docusate Sodium-Senna Tablet] raNITIdine HCl [Zantac] 150 mg PO Q12H #30 tablet 04/16/19 Unknown Rx Cyclobenzaprine [Flexeril 10 MG 10 mg PO TID PRN #15 tablet 05/06/19 Unknown Rx TAB] Ibuprofen [Motrin 600 MG tab] 600 mg PO Q8H PRN 7 Days #21 tablet 05/06/19 Unknown Rx metroNIDAZOLE [Flagyl] 500 mg PO Q12HR #14 tab 05/31/19 Unknown Rx metroNIDAZOLE [metroNIDAZOLE 70 gm VG QHS 5 Days #5 gel.w.appl 09/11/19 Unknown Rx VAGINAL 0.75% gel] Famotidine [Pepcid] 20 mg PO Q12H #60 tablet 12/10/19 Unknown Rx Naproxen 500 mg PO Q12H PRN #20 tablet 12/10/19 Unknown Rx hydrOXYzine PAMOATE [Vistaril] 25 mg PO Q8HR PRN #30 capsule 12/10/19 Unknown Rx Allergies Allergy/AdvReac Type Severity Reaction Status Date / Time No Known Allergies Allergy Unverified 04/15/19 20:52 Heart Score - HEART Score History: Slightly suspicious EKG: Normal Age: 45-65 Risk factors: 1-2 risk factors Troponin: < normal limit HEART Score: 2 ED Review of Systems ROS: Stated complaint: CHEST PAIN/SOB Other details as noted in HPI Constitutional: denies: chills, fever Eyes: denies: eye pain, eye discharge, vision change ENT: throat pain. denies: ear pain Respiratory: shortness of breath. denies: cough, wheezing Cardiovascular: chest pain. denies: palpitations Endocrine: no symptoms reported Gastrointestinal: abdominal pain (Epigastric discomfort). denies: nausea, diarrhea Genitourinary: denies: urgency, dysuria, discharge Musculoskeletal: denies: back pain, joint swelling, arthralgia Skin: denies: rash, lesions Neurological: denies: headache, weakness, paresthesias Psychiatric: anxiety. denies: depression Hematological/Lymphatic: denies: easy bleeding, easy bruising ED Past Medical Hx - Past Medical History Previous Medical History?: No Hx Hypertension: No - Surgical History Past Surgical History?: Yes Additional Surgical History: TUBAL LIGATION - Social History Smoking Status: Current Every Day Smoker Substance Use Type: Alcohol, Marijuana - Medications Home Medications: Home Medications Medication Instructions Recorded Confirmed Last Taken Type Dicyclomine [Bentyl] 20 mg PO Q6H PRN #24 tablet 04/16/19 Unknown Rx Ferrous Sulfate [Ferrous Sulfate 324 mg PO DAILY #30 tablet. 04/16/19 Unknown Rx 324 MG] Ketorolac [Toradol] 10 mg PO Q8H PRN #20 tablet 04/16/19 Unknown Rx Ondansetron [Zofran Odt] 4 mg PO Q6HR PRN #20 tab.rapdis 04/16/19 Unknown Rx Sennosides/Docusate Sodium 1 each PO QHS #30 tablet 04/16/19 Unknown Rx [Docusate Sodium-Senna Tablet] raNITIdine HCl [Zantac] 150 mg PO Q12H #30 tablet 04/16/19 Unknown Rx Cyclobenzaprine [Flexeril 10 MG 10 mg PO TID PRN #15 tablet 05/06/19 Unknown Rx TAB] Ibuprofen [Motrin 600 MG tab] 600 mg PO Q8H PRN 7 Days #21 tablet 05/06/19 Unknown Rx metroNIDAZOLE [Flagyl] 500 mg PO Q12HR #14 tab 05/31/19 Unknown Rx metroNIDAZOLE [metroNIDAZOLE 70 gm VG QHS 5 Days #5 gel.w.appl 09/11/19 Unknown Rx VAGINAL 0.75% gel] Famotidine [Pepcid] 20 mg PO Q12H #60 tablet 12/10/19 Unknown Rx Naproxen 500 mg PO Q12H PRN #20 tablet 12/10/19 Unknown Rx hydrOXYzine PAMOATE [Vistaril] 25 mg PO Q8HR PRN #30 capsule 12/10/19 Unknown Rx ED Physical Exam - General Limitations: No Limitations General appearance: alert, in no apparent distress - Head Head exam: Present: atraumatic, normocephalic, normal inspection - Eye Eye exam: Present: normal appearance, PERRL, EOMI - ENT ENT exam: Present: normal exam, normal orophraynx, mucous membranes moist, TM's normal bilaterally, normal external ear exam - Neck Neck exam: Present: normal inspection, full ROM - Respiratory Respiratory exam: Present: normal lung sounds bilaterally. Absent: respiratory distress, wheezes, rales, rhonchi, chest wall tenderness, accessory muscle use, prolonged expiratory - Cardiovascular Cardiovascular Exam: Present: regular rate, normal rhythm, normal heart sounds. Absent: systolic murmur, diastolic murmur, rubs, gallop - GI/Abdominal GI/Abdominal exam: Present: soft, normal bowel sounds. Absent: tenderness, guarding, hyperactive bowel sounds, hypoactive bowel sounds - Extremities Exam Extremities exam: Present: normal inspection, full ROM, normal capillary refill - Back Exam Back exam: Present: normal inspection, full ROM. Absent: tenderness, CVA tenderness (R), muscle spasm, paraspinal tenderness, vertebral tenderness - Neurological Exam Neurological exam: Present: alert, oriented X3, CN II-XII intact, normal gait, reflexes normal - Psychiatric Psychiatric exam: Present: normal affect, normal mood, anxious - Skin Skin exam: Present: warm, dry, intact, normal color. Absent: rash ED Course Vital Signs 12/09/19 21:56 Temperature 97.7 F Pulse Rate 82 Respiratory 16 Rate Blood Pressure 145/93 [Right] O2 Sat by Pulse 100 Oximetry LE score - Le Score Age > 65: (0) No Aspirin use within the Past 7 Days: (0) No 3 or more CAD Risk Factors: (0) No 2 or more Angina events in past 24 hrs: (0) No Known CAD with more than 50% Stenosis: (0) No Elevated Cardiac Markers: (0) No ST Deviation Greater than 0.5mm: (0) No LE Score: 0 ED Medical Decision Making - Lab Data Result diagrams: 12/09/19 22:30 12/09/19 22:30 - EKG Data EKG shows normal: sinus rhythm Rate: normal - EKG Data Interpretation: normal EKG 12/10/19 02:56 EKG shows normal sinus rhythm with ventricular rate of [address] or T wave abnormalities. - Radiology Data Radiology results: report reviewed, image reviewed Chest x-ray shows no acute cardiopulmonary abnormalities or pneumonitis. - Medical Decision Making This is a 44-year-old female with no past medical history but who smokes mariju avani and cigarettes presents to the ED with complaint of acute onset persistent substernal chest pain that she describes as burning sensation and tightness with epigastric discomfort and sore throat for the intermittently for the last 2 weeks but which got worse in the last 6 hours. Patient states that the symptoms occur mainly at night when she lays down to sleep and after she eats dinner. Patient also states that tonight 2 hours prior to arrival, she developed similar symptoms of substernal chest discomfort with a burning sensation, sore throat and epigastric discomfort and also developed shortness of breath afterwards. In the ED, patient is alert and oriented x3 and is not in any distress with normal vital signs. The EKG shows normal sinus rhythm with ventricular rate of [address] or T wave abnormalities. Chest x-ray shows no acute cardiopulmonary abnormalities or pneumonitis. All lab test results were reviewed and are all nonactionable including d-dimer level, initial and repeat troponin levels. Patient was treated in the ED with GI cocktail and aspirin, and on reevaluation, patient symptoms resolved and patient felt better with treatment. The patient's heart score is 2 for her age and risk factor of cigarette smoking, and patient is PERC negative per Wells criteria. Other differential diagnosis were considered including coronary artery disease, PE, pneumonia, GERD, muscle spasms and anxiety. Therefore based on the history, physical exam findings, lab test results and intervention in the ED, patient symptoms are likely due to GERD complications given the fact that the patient's symptoms mainly occur at night after she eats dinner and when she lays down. Therefore the patient was discharged home on antacids, also sent home on anxiety medication Vistaril to be taken at night and also anti-inflammatory pain medication. Patient was advised to return to the ED immediately if symptoms get worse, otherwise advised to follow-up with her primary care physician in 5 to 7 days for reevaluation. - Differential Diagnosis CAD; GERD; Pneumonia; Gastitis; PE; Anxiety Critical care attestation.: If time is entered above; I have spent that time in minutes in the direct care of this critically ill patient, excluding procedure time. ED Disposition Clinical Impression: Acute nonspecific chest pain with low risk of coronary artery disease, Anxiety as acute reaction to exceptional stress GERD (gastroesophageal reflux disease) Qualifiers: Esophagitis presence: without esophagitis Qualified Code(s): K21.9 - Gastro- esophageal reflux disease without esophagitis Disposition: DC-01 TO HOME OR SELFCARE Is pt being admited?: No Does the pt Need Aspirin: No Condition: Stable Instructions: Chest Pain (ED), Generalized Anxiety Disorder (ED), Gastroesophageal Reflux Disease (ED) Additional Instructions: All lab test results are unremarkable, the EKG also normal and chest x-ray shows no acute cardiopulmonary abnormalities or pneumonitis. Your symptoms are likely due to complications of GERD. Therefore take medication as needed for pain and for acid reflux. Follow-up with your primary care physician in 3 to 5 days for reevaluation. Return to the ED immediately if symptoms get worse. Prescriptions: Naproxen 500 mg PO Q12H PRN #20 tablet PRN Reason: Pain , Severe (7-10) Famotidine [Pepcid] 20 mg PO Q12H #60 tablet hydrOXYzine PAMOATE [Vistaril] 25 mg PO Q8HR PRN #30 capsule PRN Reason: Anxiety Referrals: FREDY BEAN MD [Staff Physician] - 7-10 days Forms: Work/School Release Form(ED) Time of Disposition: 02:50 Print Language: FRISIAN
[2019-12-10 04:40] VITALS: BP 160/103
== END 2019-12-10 03:12 | disposition home or self-care (01) ==
LOC: ED 21:50
DX: K21.9 Gastro-esophageal reflux disease without esophagitis (principal); F41.9 Anxiety disorder, unspecified; F17.200 Nicotine dependence, unspecified, uncomplicated; F12.10 Cannabis abuse, uncomplicated; Z98.51 Tubal ligation status
CPT/HCPCS: 36415; 71046; 80048; 84484; 85025; 85379; 85610; 93005; 93010

== ENCOUNTER 2020-01-04 11:38 | Emergency (ER) | payer SELFPAY ==
[2020-01-04 11:45] VITALS: BP 147/104
--- NOTE | 2020-01-04 12:09 | Emergency Department Report ---
ED Rash HPI - HPI Chief Complaint: Allergic Reaction Stated Complaint: ALLERGIC REACTION Time Seen by Provider: 01/04/20 12:04 Duration: 5 Days Location: Head Suspected Cause: Other Rash Symptoms: Yes Itching, Yes Peeling, No Facial Swelling, No Tongue/Oral Swelling, No Breathing Difficulties, No Choking Sensation, No Wheezing/Dyspnea, No Blistering, No Fever, No Lightheaded, No Malaise, No Myalgias Severity: mild Other History: 44 yo AA female comes to ER with scaly rash of head and occipital lymphodenopathy after using a new hair conditioner. no fever. no chills. no sob. no cp. bp noted inc in triage- no hx. pt states she is upset about her hair ED Review of Systems ROS: Stated complaint: ALLERGIC REACTION Other details as noted in HPI Comment: All other systems reviewed and negative ED Past Medical Hx - Past Medical History Previous Medical History?: No Hx Hypertension: No - Surgical History Past Surgical History?: Yes Additional Surgical History: TUBAL LIGATION - Social History Smoking Status: Current Every Day Smoker Substance Use Type: None - Medications Home Medications: Home Medications Medication Instructions Recorded Confirmed Last Taken Type Ferrous Sulfate [Ferrous Sulfate 324 mg PO DAILY #30 tablet. 04/16/19 Unknown Rx 324 MG] Famotidine [Pepcid] 20 mg PO Q12H #60 tablet 12/10/19 Unknown Rx Cetirizine HCl [ZyrTEC] 10 mg PO DAILY #30 capsule 01/04/20 Unknown Rx Sulfamethoxazole/Trimethoprim 1 each PO BID #10 tablet 01/04/20 Unknown Rx [Bactrim DS TAB] diphenhydrAMINE [Benadryl CAP] 25 mg PO Q8HR PRN #20 capsule 01/04/20 Unknown Rx predniSONE [Deltasone] 20 mg PO DAILY #5 tablet 01/04/20 Unknown Rx Rash Exam - Exam General: Vital signs noted. No distress. Alert and acting appropriately. HEENT: No Periorbital Edema, No Conjuctival Injection, No Chemosis, No Perioral Edema, No Tongue Edema, No Uvular Edema, No Compromised Airway, No Drooling Lungs: Yes Good Air Exchange (Normal Breath Sounds), No Wheezes, No Ronchi, No Stridor, No Cough, No Labored Respirations, No Retractions, No Use of Accessory Muscles, No Other Abnormal Lung Sounds Heart: Yes Regular, No Murmur Skin: Yes Excoriations, Yes Encrustations, Yes Other (small areas alopecia) Other: Positive: Abdomen Normal, Neurologic Normal, Musculoskeletal Normal ED Course Vital Signs 01/04/20 11:41 Temperature 98.0 F Pulse Rate 86 Respiratory 16 Rate Blood Pressure 147/104 O2 Sat by Pulse 100 Oximetry ED Medical Decision Making - Medical Decision Making abc intact vss no sob no cp no fever scaly rash itching sp using new conditioner on her head- several days ago now medicated in er dc home with dc poc and derm follow up Vital Signs 01/04/20 11:41 Temperature 98.0 F Pulse Rate 86 Respiratory 16 Rate Blood Pressure 147/104 O2 Sat by Pulse 100 Oximetry - Differential Diagnosis allergic response Critical care attestation.: If time is entered above; I have spent that time in minutes in the direct care of this critically ill patient, excluding procedure time. ED Disposition Clinical Impression: Allergic reaction, Elevated blood pressure reading Disposition: DC-01 TO HOME OR SELFCARE Is pt being admited?: No Does the pt Need Aspirin: No Condition: Stable Additional Instructions: meds as ordered avoid hair products follow up with derm MD referral below follow up with pcp for medical needs referral below bp elevated today monitor and follow up with pcp Prescriptions: Sulfamethoxazole/Trimethoprim [Bactrim DS TAB] 1 each PO BID #10 tablet diphenhydrAMINE [Benadryl CAP] 25 mg PO Q8HR PRN #20 capsule PRN Reason: Itching predniSONE [Deltasone] 20 mg PO DAILY #5 tablet Cetirizine HCl [ZyrTEC] 10 mg PO DAILY #30 capsule Referrals: ANABELLE TILLEY MD [Referring] - 3-5 Days FREDY BEAN MD [Staff Physician] - 3-5 Days Time of Disposition: 12:05
== END 2020-01-04 12:35 | disposition home or self-care (01) ==
LOC: ED 11:38
DX: T78.49XA Other allergy, initial encounter (principal); R03.0 Elevated blood-pressure reading, without diagnosis of hypertension; F17.200 Nicotine dependence, unspecified, uncomplicated; Z98.51 Tubal ligation status; Z79.899 Other long term (current) drug therapy; X58.XXXA Exposure to other specified factors, initial encounter
CPT/HCPCS: 99282

== ENCOUNTER 2020-01-06 06:57 | Emergency (ER) | payer OTHER ==
[2020-01-06 07:24] VITALS: BP 137/98
[2020-01-06] MEDS ORDERED: DEXAMETHASONE 4 MG TAB PO ONE (08:08)
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
[2020-01-06] MEDS ORDERED: KETOROLAC 10 MG TAB PO ONE (08:30)
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
== END 2020-01-06 09:03 | disposition home or self-care (01) ==
LOC: ED 06:57
DX: S39.012A Strain of muscle, fascia and tendon of lower back, initial encounter (principal); F17.200 Nicotine dependence, unspecified, uncomplicated; Z98.51 Tubal ligation status; V49.49XA Driver injured in collision with other motor vehicles in traffic accident, initial encounter; Y93.89 Activity, other specified; Y92.89 Other specified places as the place of occurrence of the external cause; Y99.8 Other external cause status
CPT/HCPCS: 72100; 99283; J8540

== ENCOUNTER 2020-01-21 03:42 | Emergency (ER) | payer SELFPAY ==
[2020-01-21] MEDS ORDERED: predniSONE 20 MG TAB PO ONE (05:27)
[2020-01-21] MEDS ORDERED: FAMOTIDINE 20 MG TAB PO ONE (05:27)
[2020-01-21] MEDS ORDERED: diphenhydrAMINE 25 MG CAP PO ONE (05:27)
--- NOTE | 2020-01-21 08:01 | Emergency Department Report ---
ED Allergic Reaction HPI - General Chief complaint: Allergic Reaction Stated complaint: ALLERGIC REACTION Time Seen by Provider: 01/21/20 07:34 Source: patient Mode of arrival: Ambulatory Limitations: No Limitations - History of Present Illness Initial Comments: 44-year-old -[place] female with no significant past medical history presents emerged department planing of an allergic reaction which began last night. States she ate some solid food around 5 or 6:00 PM before going to bed noticed some lip tingling and swelling reports no chest pain, shortness of breath, fever, chills, sweats, hemoptysis, hematemesis, wheezing, odynophagia or dysphasia the symptoms continued today so she came to the emergency department early this morning and reports no further progression. She was evaluated by the previous provider and treated with prednisone Benadryl and Pepcid. She reports no known palliative or provocative factors no pre-existing allergic reaction to the foods to her knowledge. - Related Data Previous Rx's Medication Instructions Recorded Last Taken Type Ferrous Sulfate [Ferrous Sulfate 324 mg PO DAILY #30 tablet.dr 04/16/19 Unknown Rx 324 MG] Famotidine [Pepcid] 20 mg PO Q12H #60 tablet 12/10/19 Unknown Rx Cetirizine HCl [ZyrTEC] 10 mg PO DAILY #30 capsule 01/04/20 Unknown Rx Sulfamethoxazole/Trimethoprim 1 each PO BID #10 tablet 01/04/20 Unknown Rx [Bactrim DS TAB] diphenhydrAMINE [Benadryl CAP] 25 mg PO Q8HR PRN #20 capsule 01/04/20 Unknown Rx predniSONE [Deltasone] 20 mg PO DAILY #5 tablet 01/04/20 Unknown Rx Cyclobenzaprine [Flexeril] 10 mg PO TID PRN #30 tablet 01/06/20 Unknown Rx Ketorolac [Toradol] 10 mg PO Q6H PRN #20 tablet 01/06/20 Unknown Rx Lidocaine 1 each TP DAILY PRN #10 adh..patch 01/06/20 Unknown Rx Loratadine [Claritin] 10 mg PO DAILY #7 tablet 01/21/20 Unknown Rx hydrOXYzine HCL [Atarax] 25 mg PO Q6HR PRN #20 tablet 01/21/20 Unknown Rx predniSONE [Deltasone] 50 mg PO QDAY #5 tab 01/21/20 Unknown Rx Allergies Allergy/AdvReac Type Severity Reaction Status Date / Time No Known Allergies Allergy Verified 01/06/20 07:16 ED Review of Systems ROS: Stated complaint: ALLERGIC REACTION Other details as noted in HPI Comment: All other systems reviewed and negative ED Past Medical Hx - Past Medical History Previous Medical History?: No Hx Hypertension: No - Surgical History Additional Surgical History: TUBAL LIGATION - Social History Smoking Status: Never Smoker Substance Use Type: Alcohol, Marijuana - Medications Home Medications: Home Medications Medication Instructions Recorded Confirmed Last Taken Type Ferrous Sulfate [Ferrous Sulfate 324 mg PO DAILY #30 tablet.dr 04/16/19 Unknown Rx 324 MG] Famotidine [Pepcid] 20 mg PO Q12H #60 tablet 12/10/19 Unknown Rx Cetirizine HCl [ZyrTEC] 10 mg PO DAILY #30 capsule 01/04/20 Unknown Rx Sulfamethoxazole/Trimethoprim 1 each PO BID #10 tablet 01/04/20 Unknown Rx [Bactrim DS TAB] diphenhydrAMINE [Benadryl CAP] 25 mg PO Q8HR PRN #20 capsule 01/04/20 Unknown Rx predniSONE [Deltasone] 20 mg PO DAILY #5 tablet 01/04/20 Unknown Rx Cyclobenzaprine [Flexeril] 10 mg PO TID PRN #30 tablet 01/06/20 Unknown Rx Ketorolac [Toradol] 10 mg PO Q6H PRN #20 tablet 01/06/20 Unknown Rx Lidocaine 1 each TP DAILY PRN #10 adh..patch 01/06/20 Unknown Rx Loratadine [Claritin] 10 mg PO DAILY #7 tablet 01/21/20 Unknown Rx hydrOXYzine HCL [Atarax] 25 mg PO Q6HR PRN #20 tablet 01/21/20 Unknown Rx predniSONE [Deltasone] 50 mg PO QDAY #5 tab 01/21/20 Unknown Rx ED Physical Exam - General Limitations: No Limitations General appearance: alert, in no apparent distress - Head Head exam: Present: atraumatic, normocephalic - Eye Eye exam: Present: normal appearance - ENT ENT exam: Present: mucous membranes moist, other (Swelling to the upper lip normal posterior pharynx. Tongue and uvula are midline no edema no exudate) - Neck Neck exam: Present: normal inspection, full ROM. Absent: lymphadenopathy, thyromegaly - Respiratory Respiratory exam: Present: normal lung sounds bilaterally. Absent: respiratory distress - Cardiovascular Cardiovascular Exam: Present: regular rate, normal rhythm. Absent: systolic murmur, diastolic murmur, rubs, gallop - GI/Abdominal GI/Abdominal exam: Present: soft, normal bowel sounds - Extremities Exam Extremities exam: Present: normal inspection, normal capillary refill - Back Exam Back exam: Present: normal inspection. Absent: CVA tenderness (R), CVA tenderness (L) - Neurological Exam Neurological exam: Present: alert, oriented X3, CN II-XII intact - Psychiatric Psychiatric exam: Present: normal affect, normal mood - Skin Skin exam: Present: warm, dry, intact, normal color. Absent: rash ED Course Vital Signs 01/21/20 03:52 Temperature 97.6 F Pulse Rate 75 Respiratory 16 Rate Blood Pressure 134/85 O2 Sat by Pulse 96 Oximetry Critical care attestation.: If time is entered above; I have spent that time in minutes in the direct care of this critically ill patient, excluding procedure time. ED Disposition Clinical Impression: Allergic reaction Disposition: DC-01 TO HOME OR SELFCARE Is pt being admited?: No Does the pt Need Aspirin: No Condition: Stable Instructions: Angioedema (ED), Food Allergy (ED) Referrals: PRIMARY CARE, [Primary Care Provider] - 3-5 Days [facility] [Provider Group] - 3-5 Days
[2020-01-21 08:06] VITALS: BP 130/80
== END 2020-01-21 08:05 | disposition home or self-care (01) ==
LOC: ED 03:42
DX: T78.1XXA Other adverse food reactions, not elsewhere classified, initial encounter (principal); R20.2 Paresthesia of skin; R22.0 Localized swelling, mass and lump, head; F12.10 Cannabis abuse, uncomplicated; Z79.899 Other long term (current) drug therapy; Z98.51 Tubal ligation status; X58.XXXA Exposure to other specified factors, initial encounter
CPT/HCPCS: 99282; J7512

== ENCOUNTER 2020-05-02 11:24 | Emergency (ER) | payer SELFPAY ==
[2020-05-02] MEDS ORDERED: LIDOCAINE (1%) 10 MG/1 ML VIAL 20 ML MDV ONE (11:28)
[2020-05-02 11:49] VITALS: BP 126/95
== END 2020-05-02 14:56 | disposition left against medical advice (07) ==
LOC: ED 11:24
DX: R07.9 Chest pain, unspecified (principal); Z53.21 Procedure and treatment not carried out due to patient leaving prior to being seen by health care provider
CPT/HCPCS: 93005

== ENCOUNTER 2020-08-25 06:15 | Emergency (ER) | payer SELFPAY | END 2020-08-25 08:38 | LOC: ED 06:15 | DX: M79.642 Pain in left hand (principal); M79.641 Pain in right hand; Z53.21 Procedure and treatment not carried out due to patient leaving prior to being seen by health care provider ==

== ENCOUNTER 2020-08-26 07:53 | Emergency (ER) | payer SELFPAY ==
[2020-08-26 08:04] VITALS: BP 141/88
[2020-08-26] MEDS ORDERED: traMADol 50 MG TAB PO ONE (11:36)
--- NOTE | 2020-08-26 11:40 | Emergency Department Report ---
ED Upper Extremity Inj HPI - General Chief Complaint: Extremity Injury, Upper Stated Complaint: ARM/HANDS PAIN/REVISIT Time Seen by Provider: 08/26/20 11:23 Source: patient Mode of arrival: Ambulatory Limitations: No Limitations - History of Present Illness Initial Comments: This is a 44-year-old female states she was in the emergency room yesterday but left because the wait was too long. She returns to the ER with complaint of bilateral wrist pain. Patient reports a history of carpal tunnel syndrome diagnosed 1 year ago. She is currently wearing bilateral wrists brace. She denies any recent falls or traumas. Currently she is taking Goody powders at home with no relief patient states the pain is worse at night. She denies any other symptoms or injuries MD Complaint: Injury to:: wrist (Bilaterally) -: During the night Other Injuries: none Improves With: none Worsens With: movement of extremity Associated Symptoms: denies other symptoms. denies: weakness, numbness, neck pain, suspects foreign body, nausea/vomiting, heard/felt popping sensat Treatments Prior to Arrival: other (Goody powder) - Related Data Previous Rx's Medication Instructions Recorded Last Taken Type Ferrous Sulfate [Ferrous Sulfate 324 mg PO DAILY #30 tablet.dr 04/16/19 Unknown Rx 324 MG] Famotidine [Pepcid] 20 mg PO Q12H #60 tablet 12/10/19 Unknown Rx Cetirizine HCl [ZyrTEC] 10 mg PO DAILY #30 capsule 01/04/20 Unknown Rx Sulfamethoxazole/Trimethoprim 1 each PO BID #10 tablet 01/04/20 Unknown Rx [Bactrim DS TAB] diphenhydrAMINE [Benadryl CAP] 25 mg PO Q8HR PRN #20 capsule 01/04/20 Unknown Rx predniSONE [Deltasone] 20 mg PO DAILY #5 tablet 01/04/20 Unknown Rx Cyclobenzaprine [Flexeril] 10 mg PO TID PRN #30 tablet 01/06/20 Unknown Rx Ketorolac [Toradol] 10 mg PO Q6H PRN #20 tablet 01/06/20 Unknown Rx Lidocaine 1 each TP DAILY PRN #10 adh..patch 01/06/20 Unknown Rx Loratadine [Claritin] 10 mg PO DAILY #7 tablet 01/21/20 Unknown Rx hydrOXYzine HCL [Atarax] 25 mg PO Q6HR PRN #20 tablet 01/21/20 Unknown Rx predniSONE [Deltasone] 50 mg PO QDAY #5 tab 01/21/20 Unknown Rx Naproxen [Naprosyn] 375 mg PO BID PRN #20 tablet 08/26/20 Unknown Rx Allergies Allergy/AdvReac Type Severity Reaction Status Date / Time No Known Allergies Allergy Verified 01/06/20 07:16 ED Review of Systems ROS: Stated complaint: ARM/HANDS PAIN/REVISIT Other details as noted in HPI Comment: All other systems reviewed and negative Constitutional: no symptoms reported Respiratory: no symptoms reported Cardiovascular: denies: chest pain, dyspnea on exertion Endocrine: no symptoms reported Gastrointestinal: denies: abdominal pain, nausea, vomiting Genitourinary: denies: urgency, dysuria, frequency, hematuria, discharge Musculoskeletal: other (Bilateral wrist pain) Skin: denies: rash, lesions, change in color, change in hair/nails, pruritus Neurological: denies: as per HPI Psychiatric: denies: as per HPI, auditory hallucinations ED Past Medical Hx - Past Medical History Previous Medical History?: Yes Hx Hypertension: No Additional medical history: Carpel tunnel - Surgical History Past Surgical History?: Yes Additional Surgical History: TUBAL LIGATION - Social History Smoking Status: Current Every Day Smoker Substance Use Type: Alcohol - Medications Home Medications: Home Medications Medication Instructions Recorded Confirmed Last Taken Type Ferrous Sulfate [Ferrous Sulfate 324 mg PO DAILY #30 tablet.dr 04/16/19 Unknown Rx 324 MG] Famotidine [Pepcid] 20 mg PO Q12H #60 tablet 12/10/19 Unknown Rx Cetirizine HCl [ZyrTEC] 10 mg PO DAILY #30 capsule 01/04/20 Unknown Rx Sulfamethoxazole/Trimethoprim 1 each PO BID #10 tablet 01/04/20 Unknown Rx [Bactrim DS TAB] diphenhydrAMINE [Benadryl CAP] 25 mg PO Q8HR PRN #20 capsule 01/04/20 Unknown Rx predniSONE [Deltasone] 20 mg PO DAILY #5 tablet 01/04/20 Unknown Rx Cyclobenzaprine [Flexeril] 10 mg PO TID PRN #30 tablet 01/06/20 Unknown Rx Ketorolac [Toradol] 10 mg PO Q6H PRN #20 tablet 01/06/20 Unknown Rx Lidocaine 1 each TP DAILY PRN #10 adh..patch 01/06/20 Unknown Rx Loratadine [Claritin] 10 mg PO DAILY #7 tablet 01/21/20 Unknown Rx hydrOXYzine HCL [Atarax] 25 mg PO Q6HR PRN #20 tablet 01/21/20 Unknown Rx predniSONE [Deltasone] 50 mg PO QDAY #5 tab 01/21/20 Unknown Rx Naproxen [Naprosyn] 375 mg PO BID PRN #20 tablet 08/26/20 Unknown Rx ED Physical Exam - General Limitations: No Limitations General appearance: alert, in no apparent distress - Head Head exam: Present: atraumatic - Eye Eye exam: Present: normal appearance - ENT ENT exam: Present: mucous membranes moist - Neck Neck exam: Present: normal inspection - Respiratory Respiratory exam: Present: normal lung sounds bilaterally - Cardiovascular Cardiovascular Exam: Present: regular rate, normal heart sounds - Extremities Exam Extremities exam: Present: normal inspection, full ROM, normal capillary refill, other. Absent: tenderness, joint swelling - Neurological Exam Neurological exam: Present: alert, oriented X3 - Psychiatric Psychiatric exam: Present: normal affect - Skin Skin exam: Present: warm, dry, intact, normal color ED Course Vital Signs 08/26/20 08:00 Temperature 98.4 F Pulse Rate 74 Respiratory 20 Rate Blood Pressure 141/88 O2 Sat by Pulse 100 Oximetry ED Medical Decision Making - Medical Decision Making 44-year-old female with history of bilateral carpal tunnel x1 year currently complaining of bilateral wrist pain with no new falls or injury. - Differential Diagnosis Bilateral wrist pain carpal tunnel syndrome Critical Care Time: No Critical care attestation.: If time is entered above; I have spent that time in minutes in the direct care of this critically ill patient, excluding procedure time. ED Disposition Clinical Impression: Bilateral wrist pain Disposition: DC-01 TO HOME OR SELFCARE Is pt being admited?: No Does the pt Need Aspirin: No Condition: Stable Instructions: Wrist Pain, Adult Additional Instructions: Continue wearing your wrist brace please follow-up with Dr. Jack or another orthopedist of your choice Prescriptions: Naproxen [Naprosyn] 375 mg PO BID PRN #20 tablet PRN Reason: Pain , Severe (7-10) Referrals: PRIMARY CARE, [Primary Care Provider] - 3-5 Days DAVID JACK MD [Staff Physician] - 3-5 Days FREDY BEAN MD [Staff Physician] - 3-5 Days Forms: Work/School Release Form(ED) Time of Disposition: 11:42
== END 2020-08-26 12:04 | disposition home or self-care (01) ==
LOC: ED 07:53
DX: M25.531 Pain in right wrist (principal); M25.532 Pain in left wrist; F17.200 Nicotine dependence, unspecified, uncomplicated; Z79.899 Other long term (current) drug therapy; Z98.51 Tubal ligation status
CPT/HCPCS: 99282

== ENCOUNTER 2020-10-14 18:32 | Emergency (ER) | payer SELFPAY ==
[2020-10-14] MEDS ORDERED: ASPIRIN 325 MG TAB PO ONE (19:43)
[2020-10-14] MEDS ORDERED: SODIUM CHLORIDE 0.9% 1000 ML 1,000 ML IV ONE (19:43)
--- NOTE | 2020-10-14 19:43 | Event Note ---
ED Screening Note Date of service: 10/14/20 Time: 19:40 ED Screening Note: 44 yr old female presents to ED c/o HTN, and heart fluttering. Patient states 2 weeks ago she went to immediate care for left hand/wrist pain and when they checked her BP it was elevated and so they started her on norvasc. She was started on Norvasc 5 mg to take daily. She states that while she was taking the Norvasc she noticed it was causing her to have sharp left-sided chest pain. She states that she took Norvasc for 1 week and then she stopped. She states that since stopping the Norvasc she has no longer had pain. She went to the ER MD Yesterday for elevated blood pressure and started on the lisinopril HCTZ but she stopped taking due to side effects. She states that she has been having occipital headaches and heart fluttering for 2 weeks. She also reports increased stress at home. She denies any other significant past medical history. This initial assessment/diagnostic orders/clinical plan/treatment(s) is/are subject to change based on patients health status, clinical progression and re-assessment by fellow clinical providers in the ED. Further treatment and workup at subsequent clinical providers discretion. Patient/guardian urged not to elope from the ED as their condition may be serious if not clinically assessed and managed. Initial orders include: Cardiac work-up
--- NOTE | 2020-10-14 20:11 | XRay Report ---
CHEST 2 VIEWS INDICATION / CLINICAL INFORMATION: Chest Pain. FINDINGS: SUPPORT DEVICES: None. HEART / MEDIASTINUM: No significant abnormality. LUNGS / PLEURA: No significant pulmonary or pleural abnormality. No pneumothorax. ADDITIONAL FINDINGS: No significant additional findings. IMPRESSION: 1. No acute findings. Signer Name: Sim Castillo MD Signed: 10/14/2020 8:07 PM Workstation Name: [id number]
[2020-10-14 20:15] LABS: Basophils # (Auto) 0.1 K/mm3 (0.0-0.1); Basophils % (Auto) 0.8 % (0.0-1.8); Eosinophils # (Auto) 0.1 K/mm3 (0.0-0.4); Eosinophils % (Auto) 0.8 % (0.0-4.3); Hematocrit 33.9 % (30.3-42.9); Hemoglobin 10.7 gm/dl (10.1-14.3); Lymphocytes # (Auto) 2.4 K/mm3 (1.2-5.4); Lymphocytes % (Auto) 24.2 % (13.4-35.0); Mean Corpuscular HGB Conc 32 % (30-34); Mean Corpuscular Volume 70 fl (79-97); Monocytes # (Auto) 0.7 K/mm3 (0.0-0.8); Monocytes % (Auto) 7.1 % (0.0-7.3); Platelet Count 278 K/mm3 (140-440); Red Blood Count 4.82 M/mm3 (3.65-5.03)
[2020-10-14 20:16] LABS: Red Cell Distribution Width 20.4 % (13.2-15.2)
[2020-10-14 20:30] LABS: Alanine Aminotransferase 17 units/L (7-56); Albumin 4.4 g/dL (3.9-5); Blood Urea Nitrogen 13 mg/dL (7-17); Calcium 9.5 mg/dL (8.4-10.2); Hemolysis Index 0
[2020-10-14 20:35] LABS: BUN/Creatinine Ratio 19
--- NOTE | 2020-10-14 21:02 | Emergency Department Report ---
ED General Adult HPI - General Chief complaint: Chest Pain Stated complaint: HIGH BLOOD PRESSURE PUI?: No Time Seen by Provider: 10/14/20 19:40 Source: patient, RN notes reviewed, old records reviewed Mode of arrival: Ambulatory Limitations: No Limitations - History of Present Illness Initial comments: The patient was evaluated in the emergency department for symptoms described in the history of present illness. He/she was evaluated in the context of the global COVID-19 pandemic, which necessitated consideration that the patient might be at risk for infection with the virus that causes COVID-19. Institutional protocols and algorithms that pertain to the evaluation of patients at risk for COVID-19 are in a state of rapid change based on information released by regulatory bodies including the CDC and federal and state organizations. These policies and algorithms were followed during the patient's care in the emergency department. Please note that these policies, procedures and recommendations changed on a rapid basis. During the history and physical examination, I am chaperoned by nurse Avani Tafoya The patient is a 44-year-old female who is right-hand dominant, who reports that she is not , has not delivered her given in the past 6 weeks, denies DVT and pulmonary embolism risk factors. The patient does not have a local primary care doctor. She does not have a formal diagnosis of high blood pressure, or anxiety. The patient presents to the ER today with complaint of intermittent central chest wall pain, present over the past 3 weeks, associate with heart fluttering, which does not radiate to the back, arms or neck. There is no vomiting, diaphoresis or exertional shortness of breath. No leg pain, no leg swelling, no surgery, no trips, no oral contraceptive use, no immobilization. She reports that a few weeks ago, she was seen in another department, or urgent care center, found to have elevated blood pressure of uncertain chronicity and duration, and for unclear reasons, was started on Norvasc. She reports that after starting Norvasc, she developed chest pressure and mild headache. Headache frontal and bitemporal, not sudden or thunderclap in nature, not maximal in intensity, not the worst headache of her life. She then reports going to a different office or urgent care center, Norvasc was discontinued, and she was started on lisinopril, which she believes is causing heart fluttering, and tongue swelling, which is now resolved. She also endorses a cough which is now resolved. She denies loss of taste and smell. The patient also reports numerous psychosocial stressors, such as multiple family members at home who need help, and assistance, and reports inadequate sleep. The patient has not participated in diet and lifestyle modifications. The patient also reports feeling a high level of anxiety. There is no personal family history of DVT, pulmonary embolism, or coronary artery disease. At the moment, she denies headache, neck pain, abdominal pain, exertional shortness of breath, vomiting, diaphoresis, hematemesis, bright red blood per rectum, urinary symptoms, and muscle aches. -: week(s) Location: chest Radiation: non-radiation Quality: aching Consistency: intermittent Improves with: rest Worsens with: other (Palpation) - Related Data Previous Rx's Medication Instructions Recorded Last Taken Type Ferrous Sulfate [Ferrous Sulfate 324 mg PO DAILY #30 tablet.dr 04/16/19 Unknown Rx 324 MG] Famotidine [Pepcid] 20 mg PO Q12H #60 tablet 12/10/19 Unknown Rx Cetirizine HCl [ZyrTEC] 10 mg PO DAILY #30 capsule 01/04/20 Unknown Rx Sulfamethoxazole/Trimethoprim 1 each PO BID #10 tablet 01/04/20 Unknown Rx [Bactrim DS TAB] diphenhydrAMINE [Benadryl CAP] 25 mg PO Q8HR PRN #20 capsule 01/04/20 Unknown Rx predniSONE [Deltasone] 20 mg PO DAILY #5 tablet 01/04/20 Unknown Rx Cyclobenzaprine [Flexeril] 10 mg PO TID PRN #30 tablet 01/06/20 Unknown Rx Ketorolac [Toradol] 10 mg PO Q6H PRN #20 tablet 01/06/20 Unknown Rx Lidocaine 1 each TP DAILY PRN #10 adh..patch 01/06/20 Unknown Rx Loratadine [Claritin] 10 mg PO DAILY #7 tablet 01/21/20 Unknown Rx hydrOXYzine HCL [Atarax] 25 mg PO Q6HR PRN #20 tablet 01/21/20 Unknown Rx predniSONE [Deltasone] 50 mg PO QDAY #5 tab 01/21/20 Unknown Rx Naproxen [Naprosyn] 375 mg PO BID PRN #20 tablet 08/26/20 Unknown Rx Allergies Allergy/AdvReac Type Severity Reaction Status Date / Time No Known Allergies Allergy Verified 01/06/20 07:16 ED Review of Systems ROS: Stated complaint: HIGH BLOOD PRESSURE Other details as noted in HPI Constitutional: denies: fever Eyes: denies: eye discharge ENT: denies: epistaxis Respiratory: denies: cough Cardiovascular: chest pain, palpitations Gastrointestinal: denies: abdominal pain Genitourinary: denies: dysuria Musculoskeletal: denies: back pain Neurological: denies: weakness Psychiatric: anxiety Hematological/Lymphatic: denies: easy bleeding ED Past Medical Hx - Past Medical History Previous Medical History?: Yes Hx Hypertension: Yes Additional medical history: Carpel tunnel - Surgical History Past Surgical History?: Yes Additional Surgical History: TUBAL LIGATION - Social History Smoking Status: Never Smoker Substance Use Type: None - Medications Home Medications: Home Medications Medication Instructions Recorded Confirmed Last Taken Type Ferrous Sulfate [Ferrous Sulfate 324 mg PO DAILY #30 tablet.dr 04/16/19 Unknown Rx 324 MG] Famotidine [Pepcid] 20 mg PO Q12H #60 tablet 12/10/19 Unknown Rx Cetirizine HCl [ZyrTEC] 10 mg PO DAILY #30 capsule 01/04/20 Unknown Rx Sulfamethoxazole/Trimethoprim 1 each PO BID #10 tablet 01/04/20 Unknown Rx [Bactrim DS TAB] diphenhydrAMINE [Benadryl CAP] 25 mg PO Q8HR PRN #20 capsule 01/04/20 Unknown Rx predniSONE [Deltasone] 20 mg PO DAILY #5 tablet 01/04/20 Unknown Rx Cyclobenzaprine [Flexeril] 10 mg PO TID PRN #30 tablet 01/06/20 Unknown Rx Ketorolac [Toradol] 10 mg PO Q6H PRN #20 tablet 01/06/20 Unknown Rx Lidocaine 1 each TP DAILY PRN #10 adh..patch 01/06/20 Unknown Rx Loratadine [Claritin] 10 mg PO DAILY #7 tablet 01/21/20 Unknown Rx hydrOXYzine HCL [Atarax] 25 mg PO Q6HR PRN #20 tablet 01/21/20 Unknown Rx predniSONE [Deltasone] 50 mg PO QDAY #5 tab 01/21/20 Unknown Rx Naproxen [Naprosyn] 375 mg PO BID PRN #20 tablet 08/26/20 Unknown Rx ED Physical Exam - General Limitations: No Limitations General appearance: alert, in no apparent distress - Head Head exam: Present: atraumatic, normocephalic - Eye Eye exam: Present: normal appearance, EOMI. Absent: nystagmus - ENT ENT exam: Present: normal exam, normal orophraynx, mucous membranes moist, normal external ear exam, other (Visual acuity intact to finger counting, color perception, reading at a close distance) - Neck Neck exam: Present: normal inspection, full ROM. Absent: tenderness, meningismus - Respiratory Respiratory exam: Present: normal lung sounds bilaterally, chest wall tenderness. Absent: respiratory distress, wheezes, rales, rhonchi, stridor, decreased breath sounds - Cardiovascular Cardiovascular Exam: Present: regular rate, normal rhythm, normal heart sounds. Absent: bradycardia, tachycardia, irregular rhythm, systolic murmur, diastolic murmur, rubs, gallop - GI/Abdominal GI/Abdominal exam: Present: soft. Absent: distended, tenderness, guarding, rebound, rigid, pulsatile mass - Extremities Exam Extremities exam: Present: normal inspection, full ROM, other (2+ pulses noted in the bilateral upper and lower extremities. There is no palpable cord. negative Homans sign. Muscular compartments are soft. The pelvis is stable.). Absent: pedal edema, joint swelling, calf tenderness - Back Exam Back exam: Present: normal inspection, full ROM. Absent: tenderness, CVA tenderness (R), CVA tenderness (L), paraspinal tenderness, vertebral tenderness - Neurological Exam Neurological exam: Present: alert, oriented X3, normal gait, other (No facial droop. Tongue midline. Extraocular movements intact bilaterally. Facial sensation intact to light touch in V1, V2, V3 distribution bilaterally. 5 and a 5 strength in 4 extremities. Sensation intact to light touch in 4 extremi ties.). Absent: motor sensory deficit - Psychiatric Psychiatric exam: Present: anxious - Skin Skin exam: Present: warm, dry, intact, normal color. Absent: rash ED Course Vital Signs 10/14/20 19:33 Temperature 98.4 F Pulse Rate 107 H Respiratory 16 Rate Blood Pressure 164/109 O2 Sat by Pulse 100 Oximetry - Pulse Oximetry Interpretation Digit-Finger Initial Pulse Oximetry Readin O2 Sat by Pulse Oximetry: 99 Actions Taken: none ED Medical Decision Making - Lab Data Result diagrams: 10/14/20 19:49 10/14/20 19:49 Vital Signs 10/14/20 10/14/20 19:33 21:12 Temperature 98.4 F Pulse Rate 107 H 82 Respiratory 16 16 Rate Blood Pressure 164/109 Blood Pressure 158/96 [Left] O2 Sat by Pulse 100 99 Oximetry Lab Results 10/14/20 10/14/20 Range/Units 19:49 19:49 WBC 10.0 (4.5-11.0) K/mm3 RBC 4.82 (3.65-5.03) M/mm3 Hgb 10.7 (10.1-14.3) gm/dl Hct 33.9 (30.3-42.9) % MCV 70 L (79-97) fl MCH 22 L (28-32) pg MCHC 32 (30-34) % RDW 20.4 H (13.2-15.2) % Plt Count 278 (140-440) K/mm3 Lymph % (Auto) 24.2 (13.4-35.0) % [place] % (Auto) 7.1 (0.0-7.3) % Eos % (Auto) 0.8 (0.0-4.3) % Baso % (Auto) 0.8 (0.0-1.8) % Lymph # (Auto) 2.4 (1.2-5.4) K/mm3 [place] # (Auto) 0.7 (0.0-0.8) K/mm3 Eos # (Auto) 0.1 (0.0-0.4) K/mm3 Baso # (Auto) 0.1 (0.0-0.1) K/mm3 Seg Neutrophils % 67.1 (40.0-70.0) % Seg Neutrophils # 6.7 (1.8-7.7) K/mm3 Sodium 133 L (137-145) mmol/L Potassium 3.9 (3.6-5.0) mmol/L Chloride 98.1 (98-107) mmol/L Carbon Dioxide 26 (22-30) mmol/L Anion Gap 13 mmol/L BUN 13 (7-17) mg/dL Creatinine 0.7 (0.6-1.2) mg/dL Estimated GFR > 60 ml/min BUN/Creatinine Ratio 19 % Glucose 87 (65-100) mg/dL Calcium 9.5 (8.4-10.2) mg/dL Total Bilirubin 0.30 (0.1-1.2) mg/dL AST 26 (5-40) units/L ALT 17 (7-56) units/L Alkaline Phosphatase 95 (35-129) units/L Troponin T < 0.010 (0.00-0.029) ng/mL Total Protein 8.1 (6.3-8.2) g/dL Albumin 4.4 (3.9-5) g/dL Albumin/Globulin Ratio 1.2 % Lipase 43 (13-60) units/L - EKG Data -: EKG Interpreted by Me EKG shows normal: sinus rhythm - EKG Data When compared to previous EKG there are: no significant change Interpretation: unchanged when compared t 10/14/20 21:16 EKG today is unchanged from prior EKG from April 2020 Sinus rhythm, 87 bpm. Normal axis, normal intervals, poor R wave progression, low voltage in aVF, abnormal EKG, not a STEMI. - Radiology Data Radiology results: pending, report reviewed, image reviewed X-ray of the chest is negative for acute finding - Medical Decision Making Differential diagnosis, including but not limited to: Anxiety, costochondritis, medication side effect Assessment and plan: 44-year-old female, who is afebrile, with reassuring vital signs, resolved tachycardia, slightly elevated blood pressure, without DVT or pulmonary embolism risk factors, low risk by Wells criteria, not currently tachycardic, tachypneic or hypoxic, with reproducible chest wall tenderness, EKG unchanged from prior EKG, 3 weeks of chest wall discomfort, troponin negative x1, low risk for major adverse cardiac event as per heart score, as per the [employer] clinical policy, myocardial infarction may be excluded with 1 set of cardiac enzymes/troponins, if symptoms present for greater than 8 hours. Equal pulses in the upper and lower extremities, no pulsatile abdominal mass, unremarkable mediastinum, this is very unlikely to be aortic disease. Patient counseled that first-line treatment for hypertension, if she does indeed have it, is diet and lifestyle modifications. I also counseled the patient that a formal diagnosis of hypertension will need to be made with consistent follow-up visits with an outpatient primary care doctor. Patient has verbalized understanding. Also counseled the patient on mindfulness, meditation techniques, self calming techniques, and nonpharmacologic interventions that she may pursue for presumed anxiety. The patient may discontinue her antihypertensives, initiate diet and lifestyle modifications, follow-up with an outpatient primary care doctor and/or human resources communications manager. Critical care attestation.: If time is entered above; I have spent that time in minutes in the direct care of this critically ill patient, excluding procedure time. ED Disposition Clinical Impression: History of anxiety, Elevated blood pressure reading, Chest wall pain Disposition: TO HOME OR SELFCARE Is pt being admited?: No Does the pt Need Aspirin: No Condition: Stable Instructions: Chest Pain (ED), Chest Wall Pain, Hypertension, Adult Additional Instructions: As we discussed, first-line treatment for hypertension, if patient indeed has a diagnosis, are diet and lifestyle modifications. This means exercising on a regular basis, making sure to get at least 7 to 8 hours of good quality uninterrupted sleep each night, avoidance of caffeine, sugar, simple carbohydrates, eating plenty of fiber, vegetables, lean protein, and avoiding heavy and spicy foods, fried foods and processed foods. Please note that formal diagnosis of hypertension requires multiple consecutive visits to her primary care or outpatient physician/provider Patient may take ibuprofen and acetaminophen [id number] as needed for pain. Patient may initiate taking a baby aspirin [id number], 81 mg on a daily basis. Patient may discontinue her blood pressure medications at this time, with the understanding that she will participate in the aforementioned recommendations. We recommend follow-up with an outpatient primary care doctor or human resources communications manager within the next week. For the patient's convenience, numerous local primary care doctor/human resources communications manager have been listed that she may contact to follow-up. Please return to the emergency room right away with new pain, worsened pain, migration of pain, projectile vomiting, change in mental status, confusion, inability to tolerate liquid feeds, new, worsened or different symptoms not present on the initial emergency room evaluation. Referrals: MATEUS SANCHEZ MD [Staff Physician] - 3-5 Days FREDY BEAN MD [Staff Physician] - 3-5 Days HEART Score - HEART Score History: Slightly suspicious EKG: Non-specific Age: 45-65 Risk factors: 1-2 risk factors Troponin: Troponin T < 0.010 ng/mL (0.00-0.029) 10/14/20 19:49 Troponin: < normal limit HEART Score: 3 - Critical Actions Critical Actions: 0-3 pts:0.9-1.7%risk of adverse cardiac event.Candidate for discharge
[2020-10-14] MEDS ORDERED: IBUPROFEN 400 MG TAB PO ONE (21:12)
[2020-10-14] MEDS ORDERED: ACETAMINOPHEN 325 MG TAB PO ONE (21:12)
[2020-10-14 21:13] VITALS: BP 158/96
== END 2020-10-14 21:34 | disposition home or self-care (01) ==
LOC: ED 18:32
DX: I10 Essential (primary) hypertension (principal); R07.89 Other chest pain; F41.9 Anxiety disorder, unspecified; Z79.899 Other long term (current) drug therapy; Z98.51 Tubal ligation status
CPT/HCPCS: 36415; 71046; 80053; 83690; 84484; 85025; 93005

== ENCOUNTER 2020-12-21 16:38 | Emergency (ER) | payer SELFPAY ==
[2020-12-21 17:15] VITALS: BP 132/87
== END 2020-12-21 17:45 | disposition left against medical advice (07) ==
LOC: ED 16:38
DX: K08.89 Other specified disorders of teeth and supporting structures (principal); Z53.21 Procedure and treatment not carried out due to patient leaving prior to being seen by health care provider

== ENCOUNTER 2020-12-26 17:51 | Emergency (ER) | payer SELFPAY ==
[2020-12-26 20:13] VITALS: BP 153/93
[2020-12-26] MEDS ORDERED: ACETAMINOPHEN 325 MG TAB PO ONE (20:15)
[2020-12-26] MEDS ORDERED: IBUPROFEN 600 MG TAB PO ONE (20:15)
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
== END 2020-12-26 22:50 | disposition home or self-care (01) ==
LOC: ED 17:51
DX: S39.012A Strain of muscle, fascia and tendon of lower back, initial encounter (principal); M62.838 Other muscle spasm; I10 Essential (primary) hypertension; Z79.899 Other long term (current) drug therapy; V49.49XA Driver injured in collision with other motor vehicles in traffic accident, initial encounter; Y93.89 Activity, other specified; Y92.488 Other paved roadways as the place of occurrence of the external cause; Y99.8 Other external cause status
CPT/HCPCS: 72100; 72125

== ENCOUNTER 2021-02-17 10:33 | Emergency (ER) | payer SELFPAY ==
[2021-02-17 10:49] VITALS: BP 127/84
[2021-02-17] MEDS ORDERED: ASPIRIN 325 MG TAB PO ONE (11:10)
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
--- NOTE | 2021-02-17 11:43 | XRay Report ---
CHEST 2 VIEWS INDICATION / CLINICAL INFORMATION: Chest Pain. COMPARISON: Chest radiograph 10/14/2020 FINDINGS: SUPPORT DEVICES: None. HEART / MEDIASTINUM: No significant abnormality. LUNGS / PLEURA: No significant pulmonary or pleural abnormality. No pneumothorax. ADDITIONAL FINDINGS: No significant additional findings. IMPRESSION: 1. No acute findings. Signer Name: Helen Eldridge MD Signed: 02/17/2021 11:39 AM Workstation Name: [id number]
[2021-02-17 11:57] LABS: Basophils # (Auto) 0.1 K/mm3 (0.0-0.1); Eosinophils # (Auto) 0.1 K/mm3 (0.0-0.4); Eosinophils % (Auto) 1.5 % (0.0-4.3); Hematocrit 37.2 % (30.3-42.9); Lymphocytes # (Auto) 1.8 K/mm3 (1.2-5.4); Lymphocytes % (Auto) 27.5 % (13.4-35.0); Mean Corpuscular HGB Conc 32 % (30-34); Mean Corpuscular Volume 80 fl (79-97); Monocytes # (Auto) 0.7 K/mm3 (0.0-0.8); Platelet Count 254 K/mm3 (140-440); Red Blood Count 4.67 M/mm3 (3.65-5.03); Red Cell Distribution Width 18.9 % (13.2-15.2)
[2021-02-17 12:04] LABS: INR 0.96 (0.87-1.13)
[2021-02-17 12:05] LABS: Partial Thromboplastin Time 31.8 Sec. (24.2-36.6)
[2021-02-17 12:10] LABS: Alanine Aminotransferase 12 units/L (7-56); Albumin 4.3 g/dL (3.9-5); Blood Urea Nitrogen 15 mg/dL (7-17); Calcium 9.3 mg/dL (8.4-10.2); Hemolysis Index 13
[2021-02-17 12:12] LABS: BUN/Creatinine Ratio 21
--- NOTE | 2021-02-22 12:51 | Electrocardiograph Report ---
[facility] Test Date: 2021-02-17 Test Time: 10:41:27 Pat Name: GEOFFREY SOTO Department: Room: Gender: F [employer] Associate: SINDY : 1975 Requested By: ROSIBEL CORADO Order Number: [id number] Reading MD: Annetta Wise Measurements Intervals [place] Rate: 73 P: 80 FL: 174 QRS: 53 QRSD: 81 T: 49 QT: 415 QTc: 459 Interpretive Statements Sinus rhythm No previous ECG available for comparison Electronically Signed On 02-22-2021 12:50:42 EDT by Annetta Wise
== END 2021-02-17 16:11 | disposition left against medical advice (07) ==
LOC: ED 10:33
DX: M54.9 Dorsalgia, unspecified (principal); Z53.21 Procedure and treatment not carried out due to patient leaving prior to being seen by health care provider
CPT/HCPCS: 36415; 71046; 80053; 84484; 85025; 85610; 85730; 93005

== ENCOUNTER 2021-05-15 21:17 | Emergency (ER) | payer SELFPAY ==
[2021-05-15 22:40] VITALS: BP 146/98
--- NOTE | 2021-05-16 00:08 | Emergency Department Report ---
ED General Adult HPI - General Chief complaint: Neck Pain/Injury Stated complaint: BREATHING AND THROAT PROBLEMS Time Seen by Provider: 05/15/21 23:45 Source: patient Mode of arrival: Ambulatory Limitations: No Limitations - History of Present Illness Initial comments: 45-year-old female with a 2 to 3-week history of dysphagia. She reports no odynophagia hemoptysis no hematemesis hematochezia, no fever, chills, sweats. No chest pain palpitations, no nausea, no vomiting -: Gradual Radiation: non-radiation Quality: dull Consistency: constant Improves with: none Associated Symptoms: denies other symptoms Treatments Prior to Arrival: none - Related Data Previous Rx's Medication Instructions Recorded Last Taken Type Ferrous Sulfate [Ferrous Sulfate 324 mg PO DAILY #30 tablet.dr 04/16/19 Unknown Rx 324 MG] Famotidine [Pepcid] 20 mg PO Q12H #60 tablet 12/10/19 Unknown Rx Cetirizine HCl [ZyrTEC] 10 mg PO DAILY #30 capsule 01/04/20 Unknown Rx Sulfamethoxazole/Trimethoprim 1 each PO BID #10 tablet 01/04/20 Unknown Rx [Bactrim DS TAB] diphenhydrAMINE [Benadryl CAP] 25 mg PO Q8HR PRN #20 capsule 01/04/20 Unknown Rx predniSONE [Deltasone] 20 mg PO DAILY #5 tablet 01/04/20 Unknown Rx Cyclobenzaprine [Flexeril] 10 mg PO TID PRN #30 tablet 01/06/20 Unknown Rx Ketorolac [Toradol] 10 mg PO Q6H PRN #20 tablet 01/06/20 Unknown Rx Lidocaine 1 each TP DAILY PRN #10 adh..patch 01/06/20 Unknown Rx Loratadine [Claritin] 10 mg PO DAILY #7 tablet 01/21/20 Unknown Rx hydrOXYzine HCL [Atarax] 25 mg PO Q6HR PRN #20 tablet 01/21/20 Unknown Rx predniSONE [Deltasone] 50 mg PO QDAY #5 tab 01/21/20 Unknown Rx Naproxen [Naprosyn] 375 mg PO BID PRN #20 tablet 08/26/20 Unknown Rx Baclofen 20 mg PO Q8H PRN #21 tablet 12/26/20 Unknown Rx Ibuprofen [Motrin] 600 mg PO Q8H PRN #30 tablet 12/26/20 Unknown Rx dexAMETHasone [Decadron] 2 mg PO Q8HR #7 tablet 05/16/21 Unknown Rx Allergies Allergy/AdvReac Type Severity Reaction Status Date / Time No Known Allergies Allergy Verified 05/15/21 22:39 ED Review of Systems ROS: Stated complaint: BREATHING AND THROAT PROBLEMS Other details as noted in HPI Comment: All other systems reviewed and negative ED Past Medical Hx - Past Medical History Previous Medical History?: No Hx Hypertension: Yes Additional medical history: Carpel tunnel - Surgical History Additional Surgical History: TUBAL LIGATION - Social History Smoking Status: Never Smoker Substance Use Type: None - Medications Home Medications: Home Medications Medication Instructions Recorded Confirmed Last Taken Type Ferrous Sulfate [Ferrous Sulfate 324 mg PO DAILY #30 tablet.dr 04/16/19 Unknown Rx 324 MG] Famotidine [Pepcid] 20 mg PO Q12H #60 tablet 12/10/19 Unknown Rx Cetirizine HCl [ZyrTEC] 10 mg PO DAILY #30 capsule 01/04/20 Unknown Rx Sulfamethoxazole/Trimethoprim 1 each PO BID #10 tablet 01/04/20 Unknown Rx [Bactrim DS TAB] diphenhydrAMINE [Benadryl CAP] 25 mg PO Q8HR PRN #20 capsule 01/04/20 Unknown Rx predniSONE [Deltasone] 20 mg PO DAILY #5 tablet 01/04/20 Unknown Rx Cyclobenzaprine [Flexeril] 10 mg PO TID PRN #30 tablet 01/06/20 Unknown Rx Ketorolac [Toradol] 10 mg PO Q6H PRN #20 tablet 01/06/20 Unknown Rx Lidocaine 1 each TP DAILY PRN #10 adh..patch 01/06/20 Unknown Rx Loratadine [Claritin] 10 mg PO DAILY #7 tablet 01/21/20 Unknown Rx hydrOXYzine HCL [Atarax] 25 mg PO Q6HR PRN #20 tablet 01/21/20 Unknown Rx predniSONE [Deltasone] 50 mg PO QDAY #5 tab 01/21/20 Unknown Rx Naproxen [Naprosyn] 375 mg PO BID PRN #20 tablet 08/26/20 Unknown Rx Baclofen 20 mg PO Q8H PRN #21 tablet 12/26/20 Unknown Rx Ibuprofen [Motrin] 600 mg PO Q8H PRN #30 tablet 12/26/20 Unknown Rx dexAMETHasone [Decadron] 2 mg PO Q8HR #7 tablet 05/16/21 Unknown Rx ED Physical Exam - General Limitations: No Limitations General appearance: alert, in no apparent distress - Head Head exam: Present: atraumatic, normocephalic - Eye Eye exam: Present: normal appearance - ENT ENT exam: Present: mucous membranes moist, other (Repeat midline voice normal) - Neck Neck exam: Present: normal inspection, thyromegaly - Respiratory Respiratory exam: Present: normal lung sounds bilaterally. Absent: respiratory distress, wheezes, rales, chest wall tenderness, accessory muscle use, decreased breath sounds - Cardiovascular Cardiovascular Exam: Present: regular rate, normal rhythm. Absent: systolic murmur, diastolic murmur, rubs, gallop - GI/Abdominal GI/Abdominal exam: Present: soft, normal bowel sounds - Extremities Exam Extremities exam: Present: normal inspection - Back Exam Back exam: Present: normal inspection - Neurological Exam Neurological exam: Present: alert, oriented X3 - Psychiatric Psychiatric exam: Present: normal affect, normal mood - Skin Skin exam: Present: warm, dry, intact, normal color. Absent: rash ED Course Vital Signs 05/15/21 22:26 Temperature 97.8 F Pulse Rate 67 Respiratory 18 Rate Blood Pressure 146/98 O2 Sat by Pulse 100 Oximetry ED Medical Decision Making - Medical Decision Making 45-year-old male presents emerged department complaining of a 2 to 3-week history of dysphagia nonprogression she reports no voice change, no hemoptysis no hematemesis hematochezia, no drooling she is able to swallow liquids. No reported acid reflux history no trauma. No evidence of any hemodynamic compromise no airway compromise advised patient need to follow-up with her primary care provider or ENT for definitive treatment will give her a round of steroids to help decrease the sensation of dysphagia although no no visible edema is present with exception of some thyromegaly. Subsequently she has no thyroid symptoms of any hyper or hypoactive Critical care attestation.: If time is entered above; I have spent that time in minutes in the direct care of this critically ill patient, excluding procedure time. ED Disposition Clinical Impression: Dysphagia Disposition: 01 HOME / SELF CARE / HOMELESS Is pt being admited?: No Does the pt Need Aspirin: No Condition: Stable Instructions: Dysphagia, Modified Barium Swallow, Upper Endoscopy, Adult, Care After Prescriptions: dexAMETHasone [Decadron] 2 mg PO Q8HR #7 tablet Referrals: WU CALIX MD [Primary Care Provider] - 3-5 Days
== END 2021-05-16 01:58 | disposition home or self-care (01) ==
LOC: ED 21:17
DX: R13.10 Dysphagia, unspecified (principal); I10 Essential (primary) hypertension; G56.00 Carpal tunnel syndrome, unspecified upper limb; Z98.890 Other specified postprocedural states
CPT/HCPCS: 99281

== ENCOUNTER 2021-05-19 18:53 | Emergency (ER) | payer SELFPAY ==
[2021-05-19 19:25] VITALS: BP 176/118
[2021-05-19] MEDS ORDERED: LIDOCAINE VISCOUS 2% 15 ML ORAL LIQD PO ONE (20:20)
[2021-05-19] MEDS ORDERED: FAMOTIDINE 20 MG/2 ML INJ IV ONE (20:20)
[2021-05-19] MEDS ORDERED: PROCHLORPERAZINE EDISYLATE 10 MG/2 ML VIAL IV ONE (20:20)
[2021-05-19] MEDS ORDERED: ALUM-MAG HYDROXIDE-SIMETHICONE 200-200-20MG/5ML ORAL LIQD 30 ML PO ONE (20:20)
[2021-05-19] MEDS ORDERED: SODIUM CHLORIDE 0.9% 1000 ML 1,000 ML IV ONE (20:22)
[2021-05-19 20:38] LABS: Basophils # (Auto) 0.1 K/mm3 (0.0-0.1); Basophils % (Auto) 0.8 % (0.0-1.8); Eosinophils # (Auto) 0.1 K/mm3 (0.0-0.4); Eosinophils % (Auto) 0.7 % (0.0-4.3); Hematocrit 39.5 % (30.3-42.9); Hemoglobin 13.1 gm/dl (10.1-14.3); Lymphocytes % (Auto) 41.1 % (13.4-35.0); Mean Corpuscular HGB Conc 33 % (30-34); Mean Corpuscular Volume 82 fl (79-97); Monocytes # (Auto) 0.8 K/mm3 (0.0-0.8); Monocytes % (Auto) 8.4 % (0.0-7.3); Platelet Count 255 K/mm3 (140-440); Red Blood Count 4.84 M/mm3 (3.65-5.03); Red Cell Distribution Width 15.8 % (13.2-15.2)
[2021-05-19 20:54] LABS: Alanine Aminotransferase 10 units/L (7-56); Albumin 4.2 g/dL (3.9-5); Blood Urea Nitrogen 12 mg/dL (7-17); Calcium 9.5 mg/dL (8.4-10.2); Hemolysis Index 3
[2021-05-19 20:55] LABS: BUN/Creatinine Ratio 17
--- NOTE | 2021-05-19 21:38 | XRay Report ---
XR chest routine 2V INDICATION / CLINICAL INFORMATION: epigastric pain. COMPARISON: 02/17/2021 FINDINGS: SUPPORT DEVICES: None. HEART /PULMONARY VASCULATURE: No significant abnormality. LUNGS / PLEURA: No significant pulmonary or pleural abnormality. No pneumothorax. ADDITIONAL FINDINGS: No significant additional findings. IMPRESSION: 1. No acute findings. Signer Name: Jah Briones MD Signed: 05/19/2021 9:34 PM Workstation Name: [id number]
[2021-05-19 22:11] LABS: Bilirubin,Urine NEG (Negative); Blood,Urine NEG (Negative); Color,Urine Straw (Yellow); Protein,Urine <15 mg/dL mg/dL (Negative); Urobilinogen,Urine < 2.0 mg/dL (<2.0); WBC,Urine < 1.0 /HPF (0.0-6.0)
--- NOTE | 2021-05-19 23:06 | Emergency Department Report ---
ED N/V/D HPI - General Chief complaint: Nausea/Vomiting/Diarrhea Stated complaint: ACID REFLUX Source: patient Mode of arrival: Ambulatory Limitations: No Limitations - History of Present Illness Initial comments: Patient is a 45-year-old -[place] female with a history of GERD and hypertension who presents to the ED with complaint of acute onset persistent intermittent intractable nausea and vomiting for the last 1 week, worse in the last 3 days. Patient states that she has not been able to keep anything down including fluids and solid foods for the last 3 days. Patient also complains of epigastric pain with every episode of nausea and vomiting. Patient also compl ains of persistent dry cough for the last 5 days. Patient was recently evaluated in this ED 3 days ago for the same but states that she was discharged home on steroids for 3 days. Patient states that her symptoms have not resolved and that she has been unable to keep anything down for the last 3 days, and worse in the last 12 hours. Patient denies dizziness, syncope, chest pain, shortness of breat h, hematemesis, diarrhea, hemoptysis, sore throat, nasal and sinus congestion or headache. MD complaint: nausea, vomiting, abdominal pain (epigastric pain) -: Sudden, week(s) (1) Description of Vomiting: food contents, watery, bilious Associated Abdominal Pain: Yes (Epigastric) Location: epigastric Radiation: none Severity: moderate Pain Scale: 4 Quality: aching, constant Consistency: constant Improves with: none Worsens with: eating, vomiting Associated Symptoms: denies other symptoms, nausea/vomiting. denies: myalgias, cough, diaphoresis, fever/chills, headaches, loss of appetite, rash, dysuria, shortness of breath, syncope, weakness, other - Related Data Previous Rx's Medication Instructions Recorded Last Taken Type Ferrous Sulfate [Ferrous Sulfate 324 mg PO DAILY #30 tablet. 04/16/19 Unknown Rx 324 MG] Cetirizine HCl [ZyrTEC] 10 mg PO DAILY #30 capsule 01/04/20 Unknown Rx Sulfamethoxazole/Trimethoprim 1 each PO BID #10 tablet 01/04/20 Unknown Rx [Bactrim DS TAB] diphenhydrAMINE [Benadryl CAP] 25 mg PO Q8HR PRN #20 capsule 01/04/20 Unknown Rx predniSONE [Deltasone] 20 mg PO DAILY #5 tablet 01/04/20 Unknown Rx Cyclobenzaprine [Flexeril] 10 mg PO TID PRN #30 tablet 01/06/20 Unknown Rx Ketorolac [Toradol] 10 mg PO Q6H PRN #20 tablet 01/06/20 Unknown Rx Lidocaine 1 each TP DAILY PRN #10 adh..patch 01/06/20 Unknown Rx Loratadine [Claritin] 10 mg PO DAILY #7 tablet 01/21/20 Unknown Rx hydrOXYzine HCL [Atarax] 25 mg PO Q6HR PRN #20 tablet 01/21/20 Unknown Rx predniSONE [Deltasone] 50 mg PO QDAY #5 tab 01/21/20 Unknown Rx Naproxen [Naprosyn] 375 mg PO BID PRN #20 tablet 08/26/20 Unknown Rx Baclofen 20 mg PO Q8H PRN #21 tablet 12/26/20 Unknown Rx Ibuprofen [Motrin] 600 mg PO Q8H PRN #30 tablet 12/26/20 Unknown Rx dexAMETHasone [Decadron] 2 mg PO Q8HR #7 tablet 05/16/21 Unknown Rx Benzonatate [Tessalon Perles] 100 mg PO Q8HR #30 capsule 05/19/21 Unknown Rx Dicyclomine [Bentyl] 20 mg PO Q6H PRN #30 tablet 05/19/21 Unknown Rx Esomeprazole Magnesium [NexIUM] 40 mg PO QDAY #30 capsule.dr 05/19/21 Unknown Rx Famotidine [Pepcid] 20 mg PO Q12H #60 tablet 05/19/21 Unknown Rx Ondansetron [Zofran Odt] 4 mg PO Q6HR PRN #20 tab.rapdis 05/19/21 Unknown Rx Allergies Allergy/AdvReac Type Severity Reaction Status Date / Time No Known Allergies Allergy Verified 05/15/21 22:39 ED Review of Systems ROS: Stated complaint: ACID REFLUX Other details as noted in HPI Constitutional: denies: chills, fever Eyes: denies: eye pain, eye discharge, vision change ENT: denies: ear pain, throat pain Respiratory: cough. denies: shortness of breath, wheezing Cardiovascular: denies: chest pain, palpitations Endocrine: no symptoms reported Gastrointestinal: abdominal pain (Epigastric pain), nausea, vomiting. denies: diarrhea Genitourinary: denies: urgency, dysuria, discharge Musculoskeletal: denies: back pain, joint swelling, arthralgia Skin: denies: rash, lesions Neurological: denies: headache, weakness, paresthesias Psychiatric: denies: anxiety, depression Hematological/Lymphatic: denies: easy bleeding, easy bruising ED Past Medical Hx - Past Medical History Previous Medical History?: Yes Hx Hypertension: Yes Hx GERD: Yes Additional medical history: Carpel tunnel - Surgical History Past Surgical History?: Yes Additional Surgical History: TUBAL LIGATION - Social History Smoking Status: Never Smoker Substance Use Type: None - Medications Home Medications: Home Medications Medication Instructions Recorded Confirmed Last Taken Type Ferrous Sulfate [Ferrous Sulfate 324 mg PO DAILY #30 tablet.dr 04/16/19 Unknown Rx 324 MG] Cetirizine HCl [ZyrTEC] 10 mg PO DAILY #30 capsule 01/04/20 Unknown Rx Sulfamethoxazole/Trimethoprim 1 each PO BID #10 tablet 01/04/20 Unknown Rx [Bactrim DS TAB] diphenhydrAMINE [Benadryl CAP] 25 mg PO Q8HR PRN #20 capsule 01/04/20 Unknown Rx predniSONE [Deltasone] 20 mg PO DAILY #5 tablet 01/04/20 Unknown Rx Cyclobenzaprine [Flexeril] 10 mg PO TID PRN #30 tablet 01/06/20 Unknown Rx Ketorolac [Toradol] 10 mg PO Q6H PRN #20 tablet 01/06/20 Unknown Rx Lidocaine 1 each TP DAILY PRN #10 adh..patch 01/06/20 Unknown Rx Loratadine [Claritin] 10 mg PO DAILY #7 tablet 01/21/20 Unknown Rx hydrOXYzine HCL [Atarax] 25 mg PO Q6HR PRN #20 tablet 01/21/20 Unknown Rx predniSONE [Deltasone] 50 mg PO QDAY #5 tab 01/21/20 Unknown Rx Naproxen [Naprosyn] 375 mg PO BID PRN #20 tablet 08/26/20 Unknown Rx Baclofen 20 mg PO Q8H PRN #21 tablet 12/26/20 Unknown Rx Ibuprofen [Motrin] 600 mg PO Q8H PRN #30 tablet 12/26/20 Unknown Rx dexAMETHasone [Decadron] 2 mg PO Q8HR #7 tablet 05/16/21 Unknown Rx Benzonatate [Tessalon Perles] 100 mg PO Q8HR #30 capsule 05/19/21 Unknown Rx Dicyclomine [Bentyl] 20 mg PO Q6H PRN #30 tablet 05/19/21 Unknown Rx Esomeprazole Magnesium [NexIUM] 40 mg PO QDAY #30 capsule. 05/19/21 Unknown Rx Famotidine [Pepcid] 20 mg PO Q12H #60 tablet 05/19/21 Unknown Rx Ondansetron [Zofran Odt] 4 mg PO Q6HR PRN #20 tab.rapdis 05/19/21 Unknown Rx ED Physical Exam - General Limitations: No Limitations General appearance: alert, in no apparent distress - Head Head exam: Present: atraumatic, normocephalic, normal inspection - Eye Eye exam: Present: normal appearance, PERRL, EOMI Pupils: Present: normal accommodation - ENT ENT exam: Present: normal exam, normal orophraynx, mucous membranes moist, TM's normal bilaterally, normal external ear exam - Neck Neck exam: Present: normal inspection, full ROM - Respiratory Respiratory exam: Present: normal lung sounds bilaterally. Absent: respiratory distress, wheezes, rales, rhonchi, chest wall tenderness, accessory muscle use, decreased breath sounds, other - Cardiovascular Cardiovascular Exam: Present: regular rate, normal rhythm, normal heart sounds. Absent: systolic murmur, diastolic murmur, rubs, gallop - GI/Abdominal GI/Abdominal exam: Present: soft, tenderness (Palpable mild epigastric tenderness), normal bowel sounds. Absent: guarding, rebound, hyperactive bowel sounds, hypoactive bowel sounds, organomegaly - Extremities Exam Extremities exam: Present: normal inspection, full ROM, normal capillary refill - Back Exam Back exam: Present: normal inspection, full ROM. Absent: tenderness, CVA tenderness (R), CVA tenderness (L), muscle spasm, paraspinal tenderness, vertebral tenderness - Neurological Exam Neurological exam: Present: alert, oriented X3, CN II-XII intact, normal gait, reflexes normal - Psychiatric Psychiatric exam: Present: normal affect, normal mood - Skin Skin exam: Present: warm, dry, intact, normal color. Absent: rash ED Course Vital Signs 05/19/21 19:22 Temperature 98.1 F Pulse Rate 67 Respiratory 18 Rate Blood Pressure 176/118 [Right] O2 Sat by Pulse 100 Oximetry ED Medical Decision Making - Lab Data Result diagrams: 05/19/21 20:27 05/19/21 20:27 - Radiology Data Radiology results: report reviewed, image reviewed [facility] [address] [place] [address] XRay Report Signed Patient: GEOFFREY SOTO MR# : [id number] : 1975 Acct:[id number] Age/Sex: 45 / F ADM Date: 05/19/21 Loc: ED Attending Dr: Ordering Physician: SYLVESTER MIXON Date of Service: 05/19/21 Procedure(s): XR chest routine 2V Accession Number(s): [id number] cc: SYLVESTER MIXON Fluoro Time In Minutes: XR chest routine 2V INDICATION / CLINICAL INFORMATION: epigastric pain. COMPARISON: 02/17/2021 FINDINGS: SUPPORT DEVICES: None. HEART /PULMONARY VASCULATURE: No significant abnormality. LUNGS / PLEURA: No significant pulmonary or pleural abnormality. No pneumothorax. ADDITIONAL FINDINGS: No significant additional findings. IMPRESSION: 1. No acute findings. Signer Name: Ray Briones MD Signed: 05/19/2021 9:34 PM Workstation Name: [id number] Transcribed By: JS Dictated By: RAY BRIONES MD Electronically Authenticated By: RAY BRIONES MD Signed Date/Time: 05/19/212133 DD/ 33 TD/TT: - Medical Decision Making This is a 45-year-old -[place] female with a history of GERD and hypertension who presents to the ED with complaint of acute onset persistent intermittent intractable nausea and vomiting for the last 1 week, worse in the last 3 days. Patient states that she has not been able to keep anything down including fluids and solid foods for the last 3 days. Patient also complains of epigastric pain with every episode of nausea and vomiting. Patient also complains of persistent dry cough for the last 5 days. Patient was recently evaluated in this ED 3 days ago for the same but states that she was discharged home on steroids for 3 days. Patient states that her symptoms have not resolved and that she has been unable to keep anything down for the last 3 days, and worse in the last 12 hours. In the ED, patient is alert and oriented x3 and is n ot in any distress. Patient is hemodynamically stable. Patient was treated in the ED with antiemetics, antacids as well as normal saline 1 L IV bolus x1. Lab test results were reviewed and are all nonactionable except for mild hyponatremia of 135 mmol/L. Chest x-ray shows no acute cardiopulmonary ab normalities or pneumonitis. On reevaluation, patient nausea and vomiting resolved medications. Patient passed oral fluid challenge in the ED. Patient discharged home on medications including antiemetics, antacids and was advised to follow-up with her primary care physician in 5 to 7 days for reevaluation or return to the ED immediately if symptoms get worse. - Differential Diagnosis GERD; Dehydration; Bronchitis; URI; Covid-19 Critical care attestation.: If time is entered above; I have spent that time in minutes in the direct care of this critically ill patient, excluding procedure time. ED Disposition Clinical Impression: Nausea and vomiting in adult GERD (gastroesophageal reflux disease) Qualifiers: Esophagitis presence: esophagitis presence not specified Qualified Code(s): K21.9 - Gastro-esophageal reflux disease without esophagitis Acute bronchitis Qualifiers: Bronchitis organism: other organism Qualified Code(s): J20.8 - Acute bronchitis due to other specified organisms Disposition: 01 HOME / SELF CARE / HOMELESS Is pt being admited?: No Does the pt Need Aspirin: No Condition: Stable Instructions: Acute Bronchitis (ED), Gastroesophageal Reflux Disease, Adult, [id number], Acute Bronchitis, Adult, [id number], Nausea and Vomiting, Adult, [id number] Additional Instructions: All lab test results were reviewed and are all nonactionable. Chest x-ray shows no acute cardiopulmonary abnormalities or pneumonitis. Therefore take medication with food, drink plenty of fluids and follow-up with your primary care physician in 5 to 7 days for reevaluation. Return to the ED immediately if symptoms get worse. Prescriptions: Dicyclomine [Bentyl] 20 mg PO Q6H PRN #30 tablet PRN Reason: Abdominal pain Esomeprazole Magnesium [NexIUM] 40 mg PO QDAY #30 capsule. Famotidine [Pepcid] 20 mg PO Q12H #60 tablet Benzonatate [Tessalon Perles] 100 mg PO Q8HR #30 capsule Ondansetron [Zofran Odt] 4 mg PO Q6HR PRN #20 tab.rapdis PRN Reason: Nausea Referrals: [facility] [Provider Group] - 3-5 Days Time of Disposition: 23:09 Print Language: WELSH
== END 2021-05-20 01:00 | disposition home or self-care (01) ==
LOC: ED 18:53
DX: K21.9 Gastro-esophageal reflux disease without esophagitis (principal); J20.8 Acute bronchitis due to other specified organisms; R11.2 Nausea with vomiting, unspecified; I10 Essential (primary) hypertension; Z79.899 Other long term (current) drug therapy; Z98.51 Tubal ligation status
CPT/HCPCS: 36415; 71046; 80053; 81001; 85025; 96361; 96374; 96375; 99284; J0780; J7030

== ENCOUNTER 2021-09-25 10:16 | Emergency (ER) | payer SELFPAY ==
[2021-09-25] MEDS ORDERED: ASPIRIN 325 MG TAB PO ONE (13:50)
[2021-09-25] MEDS ORDERED: KETOROLAC 30 MG/1 ML INJ IV ONE (13:50)
--- NOTE | 2021-09-25 14:25 | XRay Report ---
CHEST 2 VIEWS INDICATION: Chest Pain. COMPARISON: none FINDINGS: Support devices: None. Heart: Within normal limits. Lungs/pleura: No acute air space or interstitial disease. No pneumothorax. Additional findings: External artifact overlying the chest is noted IMPRESSION: No acute findings. Signer Name: Darrion Clark Jr, MD Signed: 09/25/2021 2:21 PM Workstation Name: [id number]
[2021-09-25 14:32] LABS: Basophils % (Auto) 0.7 % (0.0-1.8); Eosinophils # (Auto) 0.1 K/mm3 (0.0-0.4); Eosinophils % (Auto) 1.7 % (0.0-4.3); Hematocrit 40.9 % (30.3-42.9); Hemoglobin 13.2 gm/dl (10.1-14.3); Lymphocytes # (Auto) 1.7 K/mm3 (1.2-5.4); Lymphocytes % (Auto) 23.9 % (13.4-35.0); Mean Corpuscular HGB Conc 32 % (30-34); Mean Corpuscular Volume 83 fl (79-97); Monocytes # (Auto) 0.7 K/mm3 (0.0-0.8); Monocytes % (Auto) 9.9 % (0.0-7.3); Platelet Count 262 K/mm3 (140-440); Red Cell Distribution Width 17.2 % (13.2-15.2)
[2021-09-25 14:43] LABS: INR 0.88 (0.87-1.13)
[2021-09-25 14:54] LABS: Alanine Aminotransferase 17 units/L (7-56); Albumin 4.2 g/dL (3.9-5); Blood Urea Nitrogen 10 mg/dL (7-17); Calcium 9.5 mg/dL (8.4-10.2); Hemolysis Index 28
[2021-09-25 15:08] LABS: BUN/Creatinine Ratio 14
--- NOTE | 2021-09-25 15:29 | Emergency Department Report ---
ED Chest Pain HPI - General Chief Complaint: Chest Pain Stated Complaint: LEFT ARM WEAKNESS Time Seen by Provider: 09/25/21 13:45 Source: patient Mode of arrival: Ambulatory Limitations: No Limitations - History of Present Illness Initial Comments: chest pain on and off for 2 weeks , left side going to her arm started after covid infection . -: Gradual, week(s) (2) Onset: during rest Pain Location: left chest Pain Radiation: none Severity scale (0 -10): 3 Quality: sharp Improves With: nothing - Related Data Previous Rx's Medication Instructions Recorded Last Taken Type Ferrous Sulfate [Ferrous Sulfate 324 mg PO DAILY #30 tablet.dr 04/16/19 Unknown Rx 324 MG] Cetirizine HCl [ZyrTEC] 10 mg PO DAILY #30 capsule 01/04/20 Unknown Rx Sulfamethoxazole/Trimethoprim 1 each PO BID #10 tablet 01/04/20 Unknown Rx [Bactrim DS TAB] diphenhydrAMINE [Benadryl CAP] 25 mg PO Q8HR PRN #20 capsule 01/04/20 Unknown Rx predniSONE [Deltasone] 20 mg PO DAILY #5 tablet 01/04/20 Unknown Rx Cyclobenzaprine [Flexeril] 10 mg PO TID PRN #30 tablet 01/06/20 Unknown Rx Ketorolac [Toradol] 10 mg PO Q6H PRN #20 tablet 01/06/20 Unknown Rx Lidocaine 1 each TP DAILY PRN #10 adh..patch 01/06/20 Unknown Rx Loratadine [Claritin] 10 mg PO DAILY #7 tablet 01/21/20 Unknown Rx hydrOXYzine HCL [Atarax] 25 mg PO Q6HR PRN #20 tablet 01/21/20 Unknown Rx predniSONE [Deltasone] 50 mg PO QDAY #5 tab 01/21/20 Unknown Rx Naproxen [Naprosyn] 375 mg PO BID PRN #20 tablet 08/26/20 Unknown Rx Baclofen 20 mg PO Q8H PRN #21 tablet 12/26/20 Unknown Rx Ibuprofen [Motrin] 600 mg PO Q8H PRN #30 tablet 12/26/20 Unknown Rx dexAMETHasone [Decadron] 2 mg PO Q8HR #7 tablet 05/16/21 Unknown Rx Benzonatate [Tessalon Perles] 100 mg PO Q8HR #30 capsule 05/19/21 Unknown Rx Dicyclomine [Bentyl] 20 mg PO Q6H PRN #30 tablet 05/19/21 Unknown Rx Esomeprazole Magnesium [NexIUM] 40 mg PO QDAY #30 capsule. 05/19/21 Unknown Rx Famotidine [Pepcid] 20 mg PO Q12H #60 tablet 05/19/21 Unknown Rx Ondansetron [Zofran Odt] 4 mg PO Q6HR PRN #20 tab.rapdis 05/19/21 Unknown Rx Allergies Allergy/AdvReac Type Severity Reaction Status Date / Time No Known Allergies Allergy Verified 05/15/21 22:39 Heart Score - HEART Score History: Slightly suspicious EKG: Normal Age: 45-65 Risk factors: 1-2 risk factors Troponin: < normal limit HEART Score: 2 - EKG Read Time Time EKG Completed: 15:28 EKG Read Time: 15:28 - Critical Actions Critical Actions: 0-3 pts:0.9-1.7%risk of adverse cardiac event.Candidate for discharge ED Review of Systems ROS: Stated complaint: LEFT ARM WEAKNESS Other details as noted in HPI ED Past Medical Hx - Past Medical History Hx Hypertension: Yes Hx GERD: Yes Additional medical history: Carpel tunnel - Surgical History Additional Surgical History: TUBAL LIGATION - Social History Smoking Status: Never Smoker Substance Use Type: None - Medications Home Medications: Home Medications Medication Instructions Recorded Confirmed Last Taken Type Ferrous Sulfate [Ferrous Sulfate 324 mg PO DAILY #30 tablet. 04/16/19 Unknown Rx 324 MG] Cetirizine HCl [ZyrTEC] 10 mg PO DAILY #30 capsule 01/04/20 Unknown Rx Sulfamethoxazole/Trimethoprim 1 each PO BID #10 tablet 01/04/20 Unknown Rx [Bactrim DS TAB] diphenhydrAMINE [Benadryl CAP] 25 mg PO Q8HR PRN #20 capsule 01/04/20 Unknown Rx predniSONE [Deltasone] 20 mg PO DAILY #5 tablet 01/04/20 Unknown Rx Cyclobenzaprine [Flexeril] 10 mg PO TID PRN #30 tablet 01/06/20 Unknown Rx Ketorolac [Toradol] 10 mg PO Q6H PRN #20 tablet 01/06/20 Unknown Rx Lidocaine 1 each TP DAILY PRN #10 adh..patch 01/06/20 Unknown Rx Loratadine [Claritin] 10 mg PO DAILY #7 tablet 01/21/20 Unknown Rx hydrOXYzine HCL [Atarax] 25 mg PO Q6HR PRN #20 tablet 01/21/20 Unknown Rx predniSONE [Deltasone] 50 mg PO QDAY #5 tab 01/21/20 Unknown Rx Naproxen [Naprosyn] 375 mg PO BID PRN #20 tablet 08/26/20 Unknown Rx Baclofen 20 mg PO Q8H PRN #21 tablet 12/26/20 Unknown Rx Ibuprofen [Motrin] 600 mg PO Q8H PRN #30 tablet 12/26/20 Unknown Rx dexAMETHasone [Decadron] 2 mg PO Q8HR #7 tablet 05/16/21 Unknown Rx Benzonatate [Tessalon Perles] 100 mg PO Q8HR #30 capsule 05/19/21 Unknown Rx Dicyclomine [Bentyl] 20 mg PO Q6H PRN #30 tablet 05/19/21 Unknown Rx Esomeprazole Magnesium [NexIUM] 40 mg PO QDAY #30 capsule.dr 05/19/21 Unknown Rx Famotidine [Pepcid] 20 mg PO Q12H #60 tablet 05/19/21 Unknown Rx Ondansetron [Zofran Odt] 4 mg PO Q6HR PRN #20 tab.rapdis 05/19/21 Unknown Rx ED Physical Exam - General Limitations: No Limitations General appearance: alert, in no apparent distress - Head Head exam: Present: atraumatic, normocephalic - Eye Eye exam: Present: normal appearance - ENT ENT exam: Present: mucous membranes moist - Neck Neck exam: Present: normal inspection - Respiratory Respiratory exam: Present: normal lung sounds bilaterally. Absent: respiratory distress - Cardiovascular Cardiovascular Exam: Present: regular rate, normal rhythm. Absent: systolic murmur, diastolic murmur, rubs, gallop - GI/Abdominal GI/Abdominal exam: Present: soft, normal bowel sounds - Extremities Exam Extremities exam: Present: normal inspection - Back Exam Back exam: Present: normal inspection - Neurological Exam Neurological exam: Present: alert, oriented X3 - Psychiatric Psychiatric exam: Present: normal affect, normal mood - Skin Skin exam: Present: warm, dry, intact, normal color. Absent: rash ED Course Vital Signs 09/25/21 10:21 Temperature 99 F Pulse Rate 89 Respiratory 16 Rate Blood Pressure 159/86 [Right] O2 Sat by Pulse 98 Oximetry - Reevaluation(s) Reevaluation #1: 09/25/21 15:30 pain congtrolled , vss , nod sitress, will refer to OP card LE score - Le Score Age > 65: (0) No Aspirin use within the Past 7 Days: (0) No 3 or more CAD Risk Factors: (0) No 2 or more Angina events in past 24 hrs: (0) No Known CAD with more than 50% Stenosis: (0) No Elevated Cardiac Markers: (0) No ST Deviation Greater than 0.5mm: (0) No LE Score: 0 ED Medical Decision Making - Lab Data Result diagrams: 09/25/21 14:12 09/25/21 14:12 Critical care attestation.: If time is entered above; I have spent that time in minutes in the direct care of this critically ill patient, excluding procedure time. ED Disposition Clinical Impression: Chest pain Disposition: HOME / SELF CARE / HOMELESS Is pt being admited?: No Does the pt Need Aspirin: No Condition: Stable Instructions: Nonspecific Chest Pain, Adult Referrals: PRIMARY CARE, [Primary Care Provider] - 3-5 Days LUC EATON MD [Staff Physician] - 3-5 Days
[2021-09-25 15:45] VITALS: BP 122/80
--- NOTE | 2021-09-30 21:07 | Electrocardiograph Report ---
[facility] Test Date: 2021-09-25 Test Time: 10:29:15 Pat Name: GEOFFREY SOTO Department: Room: Gender: F [place] Tanner: NUBIA : 1975 Requested By: ED DOC Order Number: [id number] Reading MD: Lakhwinder Evans Measurements Intervals [place] Rate: 76 P: 83 [place]: 174 QRS: 49 QRSD: 74 T: 37 QT: 385 QTc: 433 Interpretive Statements Sinus rhythm [id number] Compared to ECG 02/17/2021 10:41:27 No significant changes Electronically Signed On 09-30-2021 21:07:06 EST by Lakhwinder Evans
== END 2021-09-25 15:45 | disposition home or self-care (01) ==
LOC: ED 10:16
DX: R07.9 Chest pain, unspecified (principal); I10 Essential (primary) hypertension; K21.9 Gastro-esophageal reflux disease without esophagitis
CPT/HCPCS: 36415; 71046; 80053; 83690; 84484; 85025; 85610; 93005; 96374; 99284; J1885

== ENCOUNTER 2021-10-31 19:39 | Emergency (ER) | payer SELFPAY ==
[2021-10-31 20:54] LABS: Basophils # (Auto) 0.2 K/mm3 (0.0-0.1); Basophils % (Auto) 2.5 % (0.0-1.8); Eosinophils # (Auto) 0.1 K/mm3 (0.0-0.4); Eosinophils % (Auto) 1.4 % (0.0-4.3); Hematocrit 36.6 % (30.3-42.9); Hemoglobin 12.1 gm/dl (10.1-14.3); Mean Corpuscular HGB Conc 33 % (30-34); Mean Corpuscular Volume 84 fl (79-97); Monocytes # (Auto) 0.4 K/mm3 (0.0-0.8); Monocytes % (Auto) 5.7 % (0.0-7.3); Platelet Count 246 K/mm3 (140-440); Red Blood Count 4.35 M/mm3 (3.65-5.03); Red Cell Distribution Width 16.4 % (13.2-15.2)
[2021-10-31 21:16] LABS: Alanine Aminotransferase 10 units/L (7-56); Blood Urea Nitrogen 12 mg/dL (7-17); Calcium 9.3 mg/dL (8.4-10.2); Hemolysis Index 7
[2021-10-31 21:24] LABS: BUN/Creatinine Ratio 17
[2021-10-31 22:26] LABS: Bilirubin,Urine NEG (Negative); Blood,Urine MOD (Negative); Color,Urine Straw (Yellow); Mucus,Urine FEW /HPF; Protein,Urine <15 mg/dL mg/dL (Negative); RBC,Urine < 1.0 /HPF (0.0-6.0); Urobilinogen,Urine < 2.0 mg/dL (<2.0)
[2021-11-01] MEDS ORDERED: KETOROLAC 30 MG/1 ML INJ IM ONE (01:15)
[2021-11-01] MEDS ORDERED: LIDOCAINE-MPF (1%) 10 MG/1 ML VIAL 5 ML INFILTRATI ONE (01:15)
--- NOTE | 2021-11-01 02:04 | Emergency Department Report ---
ED Female HPI - General Chief complaint: Abdominal Pain Stated complaint: ABD PAIN/LEG PAIN Source: patient Mode of arrival: Ambulatory Limitations: No Limitations - History of Present Illness Initial comments: Patient is a 45-year-old -Gabones[place] female with a history of hypertension, GERD and carpal tunnel syndrome who presents to the ED with complaint of acute onset persistent dyspareunia and suprapubic pain for the last 1 month. Patient states that she was previously evaluated by her [employer] physician about 3 months ago and was treated with antibiotics for what was suspected to have been an exposure to STD. Patient states that at that time she was treated for genital herpes for which she took antiviral tablets until completion. Patient states that the dyspareunia and suprapubic pain got worse in the last 1 month and has been progressively getting worse. Patient also complains of vaginal discharge. Patient denies dysuria, urinary frequency and urgency, low back pain, vaginal bleeding, nausea and vomiting, diarrhea, fever, chills, dizziness, syncope, traumatic injury, sore throat or chest pain or shortness of breath. MD Complaint: pelvic pain, other (dyspareunia) -: Sudden, month(s) (1) Location: suprapubic Radiation: non-radiating Severity: moderate Severity scale (0 -10): 4 Quality: sharp, crushing Consistency: constant Improves with: none Worsens with: intercourse Are you Now?: No Last Menstrual Period: 10/09/21 EDC: 07/16/22 Associated Symptoms: denies other symptoms, vaginal discharge. denies: vaginal bleeding, abdominal pain, nausea/vomiting, fever/chills, headaches, loss of appetite, dysuria, hematuria, rash, seizure, shortness of breath, syncope, weakness, other - Related Data Sexually active: Yes Previous Rx's Medication Instructions Recorded Last Taken Type Ferrous Sulfate [Ferrous Sulfate 324 mg PO DAILY #30 tablet. 04/16/19 Unknown Rx 324 MG] Cetirizine HCl [ZyrTEC] 10 mg PO DAILY #30 capsule 01/04/20 Unknown Rx Sulfamethoxazole/Trimethoprim 1 each PO BID #10 tablet 01/04/20 Unknown Rx [Bactrim DS TAB] diphenhydrAMINE [Benadryl CAP] 25 mg PO Q8HR PRN #20 capsule 01/04/20 Unknown Rx predniSONE [Deltasone] 20 mg PO DAILY #5 tablet 01/04/20 Unknown Rx Cyclobenzaprine [Flexeril] 10 mg PO TID PRN #30 tablet 01/06/20 Unknown Rx Ketorolac [Toradol] 10 mg PO Q6H PRN #20 tablet 01/06/20 Unknown Rx Lidocaine 1 each TP DAILY PRN #10 adh..patch 01/06/20 Unknown Rx Loratadine [Claritin] 10 mg PO DAILY #7 tablet 01/21/20 Unknown Rx hydrOXYzine HCL [Atarax] 25 mg PO Q6HR PRN #20 tablet 01/21/20 Unknown Rx predniSONE [Deltasone] 50 mg PO QDAY #5 tab 01/21/20 Unknown Rx Naproxen [Naprosyn] 375 mg PO BID PRN #20 tablet 08/26/20 Unknown Rx Baclofen 20 mg PO Q8H PRN #21 tablet 12/26/20 Unknown Rx Ibuprofen [Motrin] 600 mg PO Q8H PRN #30 tablet 12/26/20 Unknown Rx dexAMETHasone [Decadron] 2 mg PO Q8HR #7 tablet 05/16/21 Unknown Rx Benzonatate [Tessalon Perles] 100 mg PO Q8HR #30 capsule 05/19/21 Unknown Rx Dicyclomine [Bentyl] 20 mg PO Q6H PRN #30 tablet 05/19/21 Unknown Rx Esomeprazole Magnesium [NexIUM] 40 mg PO QDAY #30 capsule. 05/19/21 Unknown Rx Famotidine [Pepcid] 20 mg PO Q12H #60 tablet 05/19/21 Unknown Rx Ondansetron [Zofran Odt] 4 mg PO Q6HR PRN #20 tab.rapdis 05/19/21 Unknown Rx Acetaminophen/Codeine [Tylenol 1 tab PO Q6H PRN #10 tab 09/25/21 Unknown Rx /Codeine # 3 tab] Doxycycline Hyclate 100 mg PO Q12H #28 cap 11/01/21 Unknown Rx Ibuprofen [Motrin] 600 mg PO Q8H PRN #30 tablet 11/01/21 Unknown Rx metroNIDAZOLE [Flagyl] 500 mg PO Q8HR #30 tablet 11/01/21 Unknown Rx traMADoL [Ultram] 50 mg PO Q6HR PRN #12 tablet 11/01/21 Unknown Rx Allergies Allergy/AdvReac Type Severity Reaction Status Date / Time No Known Allergies Allergy Verified 05/15/21 22:39 ED Review of Systems ROS: Stated complaint: ABD PAIN/LEG PAIN Other details as noted in HPI Constitutional: denies: chills, fever Eyes: denies: eye pain, eye discharge, vision change ENT: denies: ear pain, throat pain Respiratory: denies: cough, shortness of breath, wheezing Cardiovascular: denies: chest pain, palpitations Endocrine: no symptoms reported Gastrointestinal: abdominal pain (suprapubic). denies: nausea, vomiting, diarrhea Genitourinary: discharge, dyspareunia. denies: urgency, dysuria, abnormal menses Musculoskeletal: denies: back pain, joint swelling, arthralgia Skin: denies: rash, lesions Neurological: denies: headache, weakness, paresthesias Psychiatric: denies: anxiety, depression Hematological/Lymphatic: denies: easy bleeding, easy bruising ED Past Medical Hx - Past Medical History Previous Medical History?: Yes Hx Hypertension: Yes Hx GERD: Yes Additional medical history: Carpel tunnel - Surgical History Past Surgical History?: Yes Additional Surgical History: TUBAL LIGATION - Social History Smoking Status: Never Smoker Substance Use Type: None - Medications Home Medications: Home Medications Medication Instructions Recorded Confirmed Last Taken Type Ferrous Sulfate [Ferrous Sulfate 324 mg PO DAILY #30 tablet.dr 04/16/19 Unknown Rx 324 MG] Cetirizine HCl [ZyrTEC] 10 mg PO DAILY #30 capsule 01/04/20 Unknown Rx Sulfamethoxazole/Trimethoprim 1 each PO BID #10 tablet 01/04/20 Unknown Rx [Bactrim DS TAB] diphenhydrAMINE [Benadryl CAP] 25 mg PO Q8HR PRN #20 capsule 01/04/20 Unknown Rx predniSONE [Deltasone] 20 mg PO DAILY #5 tablet 01/04/20 Unknown Rx Cyclobenzaprine [Flexeril] 10 mg PO TID PRN #30 tablet 01/06/20 Unknown Rx Ketorolac [Toradol] 10 mg PO Q6H PRN #20 tablet 01/06/20 Unknown Rx Lidocaine 1 each TP DAILY PRN #10 adh..patch 01/06/20 Unknown Rx Loratadine [Claritin] 10 mg PO DAILY #7 tablet 01/21/20 Unknown Rx hydrOXYzine HCL [Atarax] 25 mg PO Q6HR PRN #20 tablet 01/21/20 Unknown Rx predniSONE [Deltasone] 50 mg PO QDAY #5 tab 01/21/20 Unknown Rx Naproxen [Naprosyn] 375 mg PO BID PRN #20 tablet 08/26/20 Unknown Rx Baclofen 20 mg PO Q8H PRN #21 tablet 12/26/20 Unknown Rx Ibuprofen [Motrin] 600 mg PO Q8H PRN #30 tablet 12/26/20 Unknown Rx dexAMETHasone [Decadron] 2 mg PO Q8HR #7 tablet 05/16/21 Unknown Rx Benzonatate [Tessalon Perles] 100 mg PO Q8HR #30 capsule 05/19/21 Unknown Rx Dicyclomine [Bentyl] 20 mg PO Q6H PRN #30 tablet 05/19/21 Unknown Rx Esomeprazole Magnesium [NexIUM] 40 mg PO QDAY #30 capsule. 05/19/21 Unknown Rx Famotidine [Pepcid] 20 mg PO Q12H #60 tablet 05/19/21 Unknown Rx Ondansetron [Zofran Odt] 4 mg PO Q6HR PRN #20 tab.rapdis 05/19/21 Unknown Rx Acetaminophen/Codeine [Tylenol 1 tab PO Q6H PRN #10 tab 09/25/21 Unknown Rx /Codeine # 3 tab] Doxycycline Hyclate 100 mg PO Q12H #28 cap 11/01/21 Unknown Rx Ibuprofen [Motrin] 600 mg PO Q8H PRN #30 tablet 11/01/21 Unknown Rx metroNIDAZOLE [Flagyl] 500 mg PO Q8HR #30 tablet 11/01/21 Unknown Rx traMADoL [Ultram] 50 mg PO Q6HR PRN #12 tablet 11/01/21 Unknown Rx ED Physical Exam - General Limitations: No Limitations General appearance: alert, in no apparent distress - Head Head exam: Present: atraumatic, normocephalic, normal inspection - Eye Eye exam: Present: normal appearance, PERRL, EOMI Pupils: Present: normal accommodation - ENT ENT exam: Present: normal exam, normal orophraynx, mucous membranes moist, TM's normal bilaterally, normal external ear exam - Neck Neck exam: Present: normal inspection, full ROM - Respiratory Respiratory exam: Present: normal lung sounds bilaterally. Absent: respiratory distress, wheezes, rales, rhonchi, chest wall tenderness, accessory muscle use, decreased breath sounds - Cardiovascular Cardiovascular Exam: Present: regular rate, normal rhythm, normal heart sounds. Absent: systolic murmur, diastolic murmur, rubs, gallop - GI/Abdominal GI/Abdominal exam: Present: soft, normal bowel sounds. Absent: tenderness, guarding, hyperactive bowel sounds, hypoactive bowel sounds, organomegaly, mass - External exam: Present: normal external exam. Absent: erythema, swelling, lesions, lacerations, bleeding Speculum exam: Present: vaginal discharge, cervical discharge Bi-manual exam: Present: cervical motion tendernes, uterine tenderness, other (Female RN supervisor incising present Ms. Ragland) - Extremities Exam Extremities exam: Present: normal inspection, full ROM, normal capillary refill. Absent: tenderness, pedal edema, joint swelling - Back Exam Back exam: Present: normal inspection, full ROM. Absent: tenderness, CVA tenderness (R), CVA tenderness (L), muscle spasm, paraspinal tenderness, vertebral tenderness - Neurological Exam Neurological exam: Present: alert, oriented X3, CN II-XII intact, normal gait, reflexes normal - Psychiatric Psychiatric exam: Present: normal affect, normal mood - Skin Skin exam: Present: warm, dry, intact, normal color. Absent: rash ED Course Vital Signs 10/31/21 11/01/21 11/01/21 20:17 01:55 03:24 Temperature 98.3 F Pulse Rate 79 69 Respiratory 18 14 14 Rate Blood Pressure 142/96 Blood Pressure 122/89 [Right] O2 Sat by Pulse 100 100 Oximetry ED Medical Decision Making - Lab Data Result diagrams: 10/31/21 20:38 10/31/21 20:38 - Medical Decision Making This is a 45-year-old -[place]ones[place] female with a history of hypertension, GERD and carpal tunnel syndrome who presents to the ED with complaint of acute onset persistent dyspareunia and suprapubic pain for the last 1 month. Patient states that she was previously evaluated by her [employer] physician about 3 months ago and was treated with antibiotics for what was suspected to have been an exposure to STD. Patient states that at that time she was treated for genital herpes for which she took antiviral tablets until completion. Patient states that the dyspareunia and suprapubic pain got worse in the last 1 month and has been progressively getting worse. Patient also complains of vaginal discharge. In the ED, patient is alert and oriented x3 and is not in any distress. All lab test results were reviewed and are all nonactionable. Pelvic exam in the presence of a female RN supervisor incising Ms. Ragland was positive for suspected acute PID. Patient was therefore treated in the ED with Rocephin and pain medications. Patient was discharged home on antibiotics and pain medications and was advised to follow-up with [employer] physician in 7 to 10 days for reevaluation or return to the ED immediately if symptoms get worse. - Differential Diagnosis PID; UTI; trichomonas; STD; cervicitis Critical care attestation.: If time is entered above; I have spent that time in minutes in the direct care of this critically ill patient, excluding procedure time. ED Disposition Clinical Impression: Acute pelvic inflammatory disease (PID), Bacterial vaginosis Disposition: HOME / SELF CARE / HOMELESS Is pt being admited?: No Does the pt Need Aspirin: No Condition: Stable Instructions: Pelvic Inflammatory Disease, [id number], Abdominal Pain (ED), Bacterial Vaginosis (ED), Bacterial Vaginosis, [id number] Additional Instructions: Take medication with food, drink plenty of fluids and follow-up with your [employer] physician in 7 to 10 days for reevaluation. Return to the ED immediately if symptoms get worse. Prescriptions: Doxycycline Hyclate 100 mg PO Q12H #28 cap metroNIDAZOLE [Flagyl] 500 mg PO Q8HR #30 tablet Ibuprofen [Motrin] 600 mg PO Q8H PRN #30 tablet PRN Reason: Pain traMADoL [Ultram] 50 mg PO Q6HR PRN #12 tablet PRN Reason: Pain Referrals: SALMA TRIPP MD [Staff Physician] - 7-10 days Forms: Work/School Release Form(ED), STI Treatment and Prevention Time of Disposition: 02:01 Print Language: [id number]
[2021-11-01 03:25] VITALS: BP 122/89
== END 2021-11-01 03:29 | disposition home or self-care (01) ==
LOC: ED 19:39
DX: N71.9 Inflammatory disease of uterus, unspecified (principal); N77.1 Vaginitis, vulvitis and vulvovaginitis in diseases classified elsewhere; I10 Essential (primary) hypertension
CPT/HCPCS: 36415; 80053; 81001; 84703; 85025; 87210; 87591; 96372; 99284; J0696; J1885; J3490

== ENCOUNTER 2022-01-01 06:52 | Emergency (ER) | payer SELFPAY ==
[2022-01-01 06:57] VITALS: BP 122/93
== END 2022-01-01 13:10 | disposition left against medical advice (07) ==
LOC: ED 06:52
DX: R10.9 Unspecified abdominal pain (principal); R19.7 Diarrhea, unspecified; Z53.21 Procedure and treatment not carried out due to patient leaving prior to being seen by health care provider